=== PATIENT | male | born 1945 | race American Indian/Alaskan Native ===

== ENCOUNTER 2018-03-24 08:21 | Day surgery (SDC) | payer MEDICARE, BC, OTHER ==
[~2018-03-24 08:21] MED LIST: Lactated Ringers 1,000 ML IV SCH
[2018-03-24] MEDS ORDERED: Lidocaine 2% 5 ML SDV ONE (08:22)
[2018-03-24] MEDS ORDERED: fentaNYL 100 MCG/2 ML SDV ONE (08:23)
[2018-03-24] MEDS ORDERED: Propofol 200 MG/20 ML SDV ONE ×2 (08:23→08:24)
--- NOTE | 2018-03-24 09:49 | PCM.PREANE ---
Preanesthetic Assessment - Procedure Proposed Procedure: Colonoscopy - Anesthesia/Transfusion/Family Hx Anesthesia History: Prior Anesthesia Without Reaction Family History of Anesthesia Reaction: No Transfusion History: No Prior Transfusion(s) - Review of Systems General: No Symptoms Pulmonary: No Symptoms Cardiovascular: Other (s/p CABG 2001, off Plavix x 6 days; HTN; [place]; CHF hx) Gastrointestinal: Other (stool blood) Neurological: No Symptoms Other: Reports: Diabetes (type II) - Physical Assessment NPO Status Date: 03/23/18 NPO Status Time: 22:00 O2 Sat by Pulse Oximetry: 97 Respiratory Rate: 16 Vital Signs: Last Vital Signs Temp 97.9 F 03/24/18 08:44 Pulse 62 03/24/18 08:44 Resp 16 03/24/18 08:44 BP 180/82 H 03/24/18 08:44 Pulse Ox 97 03/24/18 08:44 Height: 5 ft 8 in Weight: 197 lb ASA Class: 4 Mental Status: Alert & Oriented x3 Airway Class: Mallampati = 2 Dentition: Reports: Normal Dentition Thyro-Mental Finger Breadths: 3 Mouth Opening Finger Breadths: 3 ROM/Head Extension: Full Lungs: Clear to Auscultation, Normal Respiratory Effort, Decreased Breath Sounds Cardiovascular: Regular Rate, Regular Rhythm, No Murmurs Other: sternal scar - Lab Values: Laboratory Last Values POC Glucose 77 mg/dL (60-110) 03/24/18 08:54 - Allergies Allergies/Adverse Reactions: Allergies Allergy/AdvReac Type Severity Reaction Status Date / Time No Known Allergies Allergy Verified 03/22/18 07:09 - Blood Blood Available: No Product(s) Available: None - Anesthesia Plan Beta Fritz: Carvedilol Med Last Dose Date: 03/24/18 Med Last Dose Time: 07:00 - Acknowledgements Anesthesia Type Planned: MAC Pt an Appropriate Candidate for the Planned Anesthesia: Yes Alternatives and Risks of Anesthesia Discussed w Pt/Guardian: Yes Pt/Guardian Understands and Agrees with Anesthesia Plan: Yes PreAnesthesia Questionnaire HEENT History: Reports: Other (See Below) Other HEENT History: wears glasses, has bottom partial Cardiovascular History: Reports: CAD, Heart Failure, High Cholesterol, Hypertension, [place] Gastrointestinal History: Reports: Chronic Constipation Genitourinary History: Reports: Renal Disease Other Genitourinary History: renal dialysis for 6 weeks 3 yrs ago Musculoskeletal History: Reports: Arthritis, Other (See Below) Other Musculoskeletal History: left knee injury 1997 Endocrine/Metabolic History: Reports: Diabetes, Type II Hematologic History: Reports: Anemia - Past Surgical History Head Surgeries/Procedures: Reports: None Cardiovascular Surgical History: Reports: Coronary Artery Bypass, Coronary Artery Stent Musculoskeletal Surgical History: Reports: Arthroscopic Knee Other Musculoskeletal Surgeries/Procedures:: left knee arthroscopy - SUBSTANCE USE Smoking Status *Q: Former Smoker Tobacco Use Within Last Twelve Months: No Recreational Drug Use History: No - HOME MEDS Home Medications: Home Meds Aspirin 1 tab PO DAILY 02/15/15 [History] Carvedilol 25 mg PO BID 02/15/15 [History] Clopidogrel [Plavix] 1 tab PO DAILY 02/15/15 [History] Nitroglycerin [Nitrostat] 1 tab SL ASDIRECTED PRN 02/15/15 [History] amLODIPine [Norvasc] 10 mg PO DAILY 02/15/15 [History] atorvaSTATin [Lipitor] 80 mg PO DAILY 02/15/15 [History] glipiZIDE [Glipizide ER] 10 mg PO BID 02/15/15 [History] hydrALAZINE [Apresoline] 50 mg PO BID 02/15/15 [History] Acetaminophen [Tylenol] 1 - 2 tab PO ASDIRECTED PRN 03/22/18 [History] Bumetanide 2 tab PO ASDIRECTED 03/22/18 [History] Cholecalciferol (Vitamin D3) [Vitamin D3] 2,000 units PO DAILY 03/22/18 [History ] Liraglutide [Victoza] 1.2 mg SUBCUT DAILY 03/22/18 [History] Potassium Chloride [K-Tab ER] 1 tab PO ASDIRECTED 03/22/18 [History] - CURRENT (IN HOUSE) MEDS Current Meds: Current Medications Lactated Ringer's (Ringers, Lactated) 1,000 mls @ 125 mls/hr IV ASDIRECTED OBDULIA Last Admin: 03/24/18 08:49 Dose: 125 mls/hr Discontinued Medications Fentanyl (Sublimaze) Confirm Administered Dose 100 mcg .ROUTE .STK-MED ONE Stop: 03/24/18 08:24 Lidocaine (Xylocaine-Mpf 2%) Confirm Administered Dose 5 ml .ROUTE .STK-MED ONE Stop: 03/24/18 08:23 Propofol (Diprivan 20 Ml) Confirm Administered Dose 400 mg .ROUTE .STK-MED ONE Stop: 03/24/18 08:24 Propofol (Diprivan 20 Ml) Confirm Administered Dose 200 mg .ROUTE .STK-MED ONE Stop: 03/24/18 08:25
--- NOTE | 2018-03-24 11:10 | PCM.OPNOTE ---
- General Post-Op/Procedure Note Date of Surgery/Procedure: 03/24/18 Operative Procedure(s): Colonoscopy with cold descending colon polypectomy Pre Op Diagnosis: Hemoccult-positive stool Post-Op Diagnosis: Descending colon polyp Anesthesia Technique: MAC (ASA III) Primary Surgeon: Jordi Davila Condition: Good Free Text/Narrative:: DICTATION [id number] CPT CODE 99621
[2018-03-24] MEDS ORDERED: Lactated Ringers 1,000 ML IV SCH (11:15)
--- NOTE | 2018-03-24 11:29 | PCM.POSTAN ---
POST ANESTHESIA ASSESSMENT - MENTAL STATUS Mental Status: Alert, Oriented - RESPIRATORY Respiratory Status: Respiratory Rate WNL, Airway Patent, O2 Saturation Stable - CARDIOVASCULAR CV Status: Pulse Rate WNL, Blood Pressure Stable - GASTROINTESTINAL GI Status: No Symptoms - POST OP HYDRATION Hydration Status: Adequate & Stable
--- NOTE | 2018-03-24 11:39 | PCM48HPAN ---
Post Anesthesia Note - EVALUATION WITHIN 48HRS OF ANESTHETIC Vital Signs in Normal Range: Yes Patient Participated in Evaluation: Yes Respiratory Function Stable: Yes Airway Patent: Yes Cardiovascular Function Stable: Yes Hydration Status Stable: Yes Pain Control Satisfactory: Yes Nausea and Vomiting Control Satisfactory: Yes Mental Status Recovered: Yes Resp Rate: 14
[2018-03-24 11:41] VITALS: BP 195/91
--- NOTE | 2018-03-24 12:34 | OR ---
SURGEON: Jordi Davila M.D. DATE OF PROCEDURE: 03/24/2018 OPERATION PERFORMED: Colonoscopy with cold descending colon polypectomy. ANESTHESIA: MAC. ASA CLASSIFICATION: III. PREOPERATIVE DIAGNOSIS: Hemoccult positive stool. POSTOPERATIVE DIAGNOSIS: Small descending colon polyp. DESCRIPTION OF PROCEDURE: The patient was taken to the endoscopy room, positioned on the endoscopy table in the left lateral decubitus position. Time-out was called for appropriate identification of the patient and procedure. Monitored anesthesia care was provided. The colonoscope was inserted into the rectum and advanced without difficulty to the cecum where the colonoscope was retroflexed to visualize the ascending colon from below. The colonoscope was then straightened and slowly withdrawn. The cecum, ascending colon, hepatic flexure, transverse colon, and splenic flexure showed no tumors, polyps, diverticula, or angiodysplastic changes. One small polyp was encountered in the descending colon and removed with cold biopsy forceps. There was no significant bleeding. The colonoscope was slowly withdrawn through the sigmoid colon. No tumors or polyps were seen and there were no diverticular changes. Once the colonoscope was withdrawn to the rectum, it was retroflexed to visualize the anal orifice from above. No tumors, polyps, or acute hemorrhoidal changes were noted. The colonoscope was then straightened, the rectum aspirated, and the colonoscope removed. The patient tolerated the procedure well and was taken to recovery room in stable. MERON GUERRERO /[id number]
== END 2018-03-24 11:41 | disposition home or self-care (01) ==
LOC: MW.SDS 08:21
PROVIDERS: ATTEND Surgery
DX: R19.5 Other fecal abnormalities (principal); D12.4 Benign neoplasm of descending colon; I11.0 Hypertensive heart disease with heart failure; I50.9 Heart failure, unspecified; I25.10 Atherosclerotic heart disease of native coronary artery without angina pectoris; I25.2 Old myocardial infarction; E78.00 Pure hypercholesterolemia, unspecified; E11.9 Type 2 diabetes mellitus without complications; M17.0 Bilateral primary osteoarthritis of knee; Z79.82 Long term (current) use of aspirin; Z79.84 Long term (current) use of oral hypoglycemic drugs; Z79.899 Other long term (current) drug therapy; Z87.891 Personal history of nicotine dependence
CPT/HCPCS: 45380; 82962; J2704; J3010; J7120

== ENCOUNTER 2018-08-16 09:56 | Emergency (ER) | payer MEDICARE, BC, OTHER ==
[2018-08-16] MEDS: Sodium Chloride 0.9% 10 ML Syringe FLUSH PRN (10:21)
[2018-08-16] MEDS: Sodium Chloride 0.9% 2.5 ML Syringe FLUSH PRN (10:21)
--- NOTE | 2018-08-16 10:24 | EDM.PDOC ---
ED HPI GENERAL MEDICAL PROBLEM - General Chief Complaint: Chest Pain Stated Complaint: CHEST PAIN Time Seen by Provider: 08/16/18 10:11 Source of Information: Reports: Patient History Limitations: Reports: No Limitations - History of Present Illness INITIAL COMMENTS - FREE TEXT/NARRATIVE: HISTORY AND PHYSICAL: History of present illness: Patient is a 73-year-old male who presents to the ED today with concerns of chest pain for the past 3 weeks. Patient states that he did have a "cold" when the chest pain and started when he was coughing. He states that he went to see Dr. Waggoner today and was told to come to the ER to get his chest pain evaluated. Patient has had prior MRIs and states that this pain does not feel like the ones that he had. Patient describes the chest pain as a dull and a 2 out of 10. He states that he is not able to make it better or worse with any positional changes or present on his chest. Patient states all upper respiratory symptoms have resolved but he now has this chest pain. Patient denies shortness of breath, difficulties breathing, diaphoresis, radiation of pain, abdominal pain, nausea, vomiting, fevers, chills, or all other GI, , cardiovascular, or respiratory complaints. Patient does have a history of 2 myocardial infarctions s/p stent and bypass; patient is unsure how long ago this was. He also has a history of congestive heart failure, type 2 diabetes on oral medications, hypertension, hyperlipidemia. Review of systems: As per history of present illness and below otherwise all systems reviewed and negative. Past medical history: As per history of present illness and as reviewed below otherwise noncontributory. Surgical history: As per history of present illness and as reviewed below otherwise noncontributory. Social history: See social history for further information Family history: As per history of present illness and as reviewed below otherwise noncontributory. Physical exam: General: Patient is alert, oriented, and in no acute distress. He is sitting comfortably on exam table. HEENT: Atraumatic, normocephalic, pupils equal and reactive bilaterally, negative for conjunctival pallor or scleral icterus, mucous membranes moist, TMs normal bilaterally, throat clear, neck supple, nontender, trachea midline. No drooling or trismus noted. No meningeal signs. No hot potato voice noted. Lungs: Diminished but clear to auscultation, breath sounds equal bilaterally, chest nontender. Heart: Distant S1S2, regular rate and rhythm without overt murmur Abdomen: Soft, nondistended, nontender. Negative for masses or hepatosplenomegaly. Negative for costovertebral tenderness. Pelvis: Stable nontender. Genitourinary: Deferred. Rectal: Deferred. Skin: Intact, warm, dry. No lesions or rashes noted. Extremities: Atraumatic, negative for cords or calf pain. Neurovascular unremarkable. Neuro: Awake, alert, oriented. Cranial nerves II through XII unremarkable. Cerebellum unremarkable. Motor and sensory unremarkable throughout. Exam nonfocal. Notes: Aspirin [employer]; on plavix. Chest x-ray shows no acute cardiopulmonary process. Patient does have an elevated creatinine and BUN but this appears to be within his normal range of function compared to prior visits is slightly even improved. EKG and cardiac workup today was unremarkable. Lab workup unremarkable. Discussed these findings with patient and offered admission. Patient states that he feels well enough to go home and does not desire to be admitted at this time. Discussed the risks versus benefits of this. Return to the ED if he changes his mind. Vital signs are stable. He denies any pain at this time. Supportive care measures were reviewed and discussed. Voices understanding and is agreeable to plan of care. Denies any further questions or concerns at this time. Diagnostics: CBC, CMP, EKG, troponin, chest x-ray, BNP, PT/INR, Therapeutics: saline lock Prescription: none Impression: Chest pain, unspecified Plan: 1. Follow up with your hosiery repairer or your primary care provider in the next 1- 2 days. 2. Continue all home medications as prescribed. 3. Return to the ED as needed and as discussed. Definitive disposition and diagnosis as appropriate pending reevaluation and review of above. - Related Data Allergies Allergy/AdvReac Type Severity Reaction Status Date / Time No Known Allergies Allergy Verified 08/16/18 10:09 Home Meds: Home Meds Aspirin 1 tab PO QAM 02/15/15 [History] Carvedilol 25 mg PO BID 02/15/15 [History] Clopidogrel [Plavix] 1 tab PO QAM 02/15/15 [History] Nitroglycerin [Nitrostat] 0.4 mg SL ASDIRECTED PRN 02/15/15 [History] amLODIPine [Norvasc] 10 mg PO BEDTIME 02/15/15 [History] atorvaSTATin [Lipitor] 80 mg PO QAM 02/15/15 [History] hydrALAZINE [Apresoline] 50 mg PO BID 02/15/15 [History] Acetaminophen [Tylenol] 1 - 2 tab PO Q6H PRN 03/22/18 [History] Bumetanide 2 mg PO ASDIRECTED 03/22/18 [History] Cholecalciferol (Vitamin D3) [Vitamin D3] 2,000 units PO DAILY 03/22/18 [History ] Liraglutide [Victoza] 1.2 mg SUBCUT QAM 03/22/18 [History] Potassium Chloride [K-Tab ER] 1 tab PO ASDIRECTED 03/22/18 [History] Diclofenac Sodium [Diclofono] 1 applic TP ASDIRECTED PRN 08/16/18 [History] glipiZIDE [Glucotrol] 10 mg PO BID 08/16/18 [History] Past Medical History HEENT History: Reports: Other (See Below) Other HEENT History: wears glasses, has bottom partial Cardiovascular History: Reports: CAD, Heart Failure, High Cholesterol, Hypertension, [place] Respiratory History: Reports: None Gastrointestinal History: Reports: Chronic Constipation Genitourinary History: Reports: Renal Disease Other Genitourinary History: renal dialysis for 6 weeks 3 yrs ago Musculoskeletal History: Reports: Arthritis, Other (See Below) Other Musculoskeletal History: left knee injury 1998 Neurological History: Reports: None Psychiatric History: Reports: None Endocrine/Metabolic History: Reports: Diabetes, Type II Hematologic History: Reports: Anemia Immunologic History: Reports: None Oncologic (Cancer) History: Reports: None Dermatologic History: Reports: None - Past Surgical History Head Surgeries/Procedures: Reports: None HEENT Surgical History: Reports: None Cardiovascular Surgical History: Reports: Coronary Artery Bypass, Coronary Artery Stent Respiratory Surgical History: Reports: None GI Surgical History: Reports: None Male Surgical History: Reports: None Endocrine Surgical History: Reports: None Neurological Surgical History: Reports: None Musculoskeletal Surgical History: Reports: Arthroscopic Knee Other Musculoskeletal Surgeries/Procedures:: left knee arthroscopy Oncologic Surgical History: Reports: None Dermatological Surgical History: Reports: None Social & Family History - Family History Family Medical History: Noncontributory - Tobacco Use Smoking Status *Q: Former Smoker Used Tobacco, but Quit: Yes Month/Year Tobacco Last Used: 40years - Caffeine Use Caffeine Use: Reports: Coffee - Recreational Drug Use Recreational Drug Use: No ED ROS GENERAL - Review of Systems Review Of Systems: ROS reveals no pertinent complaints other than HPI. ED EXAM, GENERAL - Physical Exam Exam: See Below (See dictation) Course - Vital Signs Last Recorded V/S: Last Vital Signs Temp 97.3 F 08/16/18 09:57 Pulse 63 08/16/18 11:34 Resp 15 08/16/18 11:34 BP 146/65 H 08/16/18 11:34 Pulse Ox 95 08/16/18 11:34 - Orders/Labs/Meds Orders: Active Orders 24 hr Category Date Time Status EKG Documentation Completion [RC] STAT Care 08/16/18 10:12 Active Saline Lock Insert [OM.PC] Stat Oth 08/16/18 10:12 Ordered Labs: Laboratory Tests 08/16/18 08/16/18 08/16/18 Range/Units 10:02 10:02 10:02 WBC 10.22 (4.0-11.0) K/uL RBC 4.60 (4.50-5.90) M/uL Hgb 13.5 (13.0-17.0) g/dL Hct 40.2 (38.0-50.0) % MCV 87.4 (80.0-98.0) fL MCH 29.3 (27.0-32.0) pg MCHC 33.6 (31.0-37.0) g/dL RDW Std Deviation 43.7 (28.0-62.0) fl RDW Coeff of [place] 14 (11.0-15.0) % Plt Count 276 (150-400) K/uL MPV 9.40 (7.40-12.00) fL Neut % (Auto) 73.0 (48.0-80.0) % Lymph % (Auto) 14.0 L (16.0-40.0) % [place] % (Auto) 7.3 (0.0-15.0) % Eos % (Auto) 5.4 (0.0-7.0) % Baso % (Auto) 0.3 (0.0-1.5) % Neut # (Auto) 7.5 H (1.4-5.7) K/uL Lymph # (Auto) 1.4 (0.6-2.4) K/uL [place] # (Auto) 0.8 (0.0-0.8) K/uL Eos # (Auto) 0.6 (0.0-0.7) K/uL Baso # (Auto) 0.0 (0.0-0.1) K/uL Nucleated RBC % 0.0 /100WBC Nucleated RBCs # 0 K/uL INR 1.08 Sodium 134 L (136-148) mmol/L Potassium 4.3 (3.5-5.1) mmol/L Chloride 100 (98-107) mmol/L Carbon Dioxide 25.7 (21.0-32.0) mmol/L BUN 32 H (7.0-18.0) mg/dL Creatinine 1.7 H (0.8-1.3) mg/dL Est Cr Clr Drug Dosing 38.00 mL/min Estimated GFR (MDRD) 39.8 ml/min Glucose 218 H (74-106) mg/dL Calcium 8.6 (8.5-10.1) mg/dL Total Bilirubin 0.8 (0.2-1.0) mg/dL AST 34 (15-37) IU/L ALT 44 (14-63) IU/L Alkaline Phosphatase 183 H (46-116) U/L Troponin I < 0.050 (0.000-0.056) ng/mL B-Natriuretic Peptide (<100) PG/ML Total Protein 7.8 (6.4-8.2) g/dL Albumin 3.1 L (3.4-5.0) g/dL Globulin 4.7 H (2.6-4.0) g/dL Albumin/Globulin Ratio 0.7 L (0.9-1.6) 08/16/18 Range/Units 10:02 WBC (4.0-11.0) K/uL RBC (4.50-5.90) M/uL Hgb (13.0-17.0) g/dL Hct (38.0-50.0) % MCV (80.0-98.0) fL MCH (27.0-32.0) pg MCHC (31.0-37.0) g/dL RDW Std Deviation (28.0-62.0) fl RDW Coeff of [place] (11.0-15.0) % Plt Count (150-400) K/uL MPV (7.40-12.00) fL Neut % (Auto) (48.0-80.0) % Lymph % (Auto) (16.0-40.0) % [place] % (Auto) (0.0-15.0) % Eos % (Auto) (0.0-7.0) % Baso % (Auto) (0.0-1.5) % Neut # (Auto) (1.4-5.7) K/uL Lymph # (Auto) (0.6-2.4) K/uL [place] # (Auto) (0.0-0.8) K/uL Eos # (Auto) (0.0-0.7) K/uL Baso # (Auto) (0.0-0.1) K/uL Nucleated RBC % /100WBC Nucleated RBCs # K/uL INR Sodium (136-148) mmol/L Potassium (3.5-5.1) mmol/L Chloride (98-107) mmol/L Carbon Dioxide (21.0-32.0) mmol/L BUN (7.0-18.0) mg/dL Creatinine (0.8-1.3) mg/dL Est Cr Clr Drug Dosing mL/min Estimated GFR (MDRD) ml/min Glucose (74-106) mg/dL Calcium (8.5-10.1) mg/dL Total Bilirubin (0.2-1.0) mg/dL AST (15-37) IU/L ALT (14-63) IU/L Alkaline Phosphatase (46-116) U/L Troponin I (0.000-0.056) ng/mL B-Natriuretic Peptide 162 H (<100) PG/ML Total Protein (6.4-8.2) g/dL Albumin (3.4-5.0) g/dL Globulin (2.6-4.0) g/dL Albumin/Globulin Ratio (0.9-1.6) Meds: Medications Discontinued Medications Generic Name Dose Route Start Last Admin Trade Name Freq PRN Reason Stop Dose Admin Sodium Chloride 10 ml 08/16/18 10:12 08/16/18 10:21 Saline Flush FLUSH 10 ml ASDIRECTED PRN Administration Keep Vein Open Sodium Chloride 2.5 ml 08/16/18 10:12 08/16/18 10:21 Saline Flush FLUSH 2.5 ml ASDIRECTED PRN Administration Keep Vein Open Departure - Departure Time of Disposition: 11:31 Disposition: Home, Self-Care 01 Clinical Impression: Chest pain Qualifiers: Chest pain type: unspecified Qualified Code(s): R07.9 - Chest pain, unspecified Instructions: Nonspecific Chest Pain, [id number] Referrals: Yenni Waggoner MD [Primary Care Provider] - Forms: ED Department Discharge Additional Instructions: The following information is given to patients seen in the emergency department who are being discharged to home. This information is to outline your options for follow-up care. We provide all patients seen in our emergency department with a follow-up referral. The need for follow-up, as well as the timing and circumstances, are variable depending upon the specifics of your emergency department visit. If you don't have a primary care physician on staff, we will provide you with a referral. We always advise you to contact your personal physician following an emergency department visit to inform them of the circumstance of the visit and for follow-up with them and/or the need for any referrals to a consulting specialist. The emergency department will also refer you to a specialist when appropriate. This referral assures that you have the opportunity for follow-up care with a specialist. All of these measure are taken in an effort to provide you with optimal care, which includes your follow-up. Under all circumstances we always encourage you to contact your private physician who remains a resource for coordinating your care. When calling for follow-up care, please make the office aware that this follow-up is from your recent emergency room visit. If for any reason you are refused follow-up, please contact the [facility] Emergency Department at and asked to speak to the emergency department charge nurse. [facility] [address] [place] [id number] [address] [address] 1. Follow up with your hosiery repairer or your primary care provider in the next 1- 2 days. 2. Continue all home medications as prescribed. 3. Return to the ED as needed and as discussed. - My Orders Last 24 Hours: My Active Orders 08/16/18 10:12 EKG Documentation Completion [RC] STAT Saline Lock Insert [OM.PC] Stat - Assessment/Plan Last 24 Hours: My Active Orders 08/16/18 10:12 EKG Documentation Completion [RC] STAT Saline Lock Insert [OM.PC] Stat
--- NOTE | 2018-08-16 10:45 | CR ---
EXAMINATION: Portable chest radiograph. HISTORY: Chest pain. FINDINGS: The trachea is midline. The cardiomediastinal silhouette is within normal limits. No pulmonary infiltrates, effusions or pneumothorax. Median sternotomy wires are noted. Osseous structures appear unremarkable. IMPRESSION: No acute cardiopulmonary process.
[2018-08-16 11:11] LABS: CHLORIDE,CL 100 mmol/L (98-107); SODIUM,NA 134 mmol/L (136-148)
[2018-08-16 11:34] VITALS: BP 146/65
== END 2018-08-16 11:44 | disposition home or self-care (01) ==
LOC: MW.ED 09:56
DX: R07.9 Chest pain, unspecified (principal); I11.0 Hypertensive heart disease with heart failure; I50.9 Heart failure, unspecified; I25.2 Old myocardial infarction; I25.10 Atherosclerotic heart disease of native coronary artery without angina pectoris; E11.9 Type 2 diabetes mellitus without complications; Z79.899 Other long term (current) drug therapy; Z79.82 Long term (current) use of aspirin; Z87.891 Personal history of nicotine dependence; Z79.01 Long term (current) use of anticoagulants
CPT/HCPCS: 36415; 71045; 71045-26; 80053; 83880; 84484; 85025; 85610; 93005; 99284; 99285-25

== ENCOUNTER 2019-06-02 20:04 | Emergency (ER) | payer MEDICARE, BC, OTHER ==
[2019-06-02] MEDS ORDERED: EPINEPHrine 1:10,000 1 MG/10 ML Syringe IV ONE ×2 (20:05)
[2019-06-02] MEDS ORDERED: Rocuronium 100 MG/10 ML MDV IVPUSH ONE (20:05)
[2019-06-02] MEDS ORDERED: Sodium Chloride 0.9% 2.5 ML Syringe FLUSH PRN ×2 (20:06→20:08)
[2019-06-02] MEDS ORDERED: Sodium Chloride 0.9% 10 ML Syringe FLUSH PRN ×2 (20:06→20:08)
[2019-06-02] MEDS ORDERED: methylPREDNISolone Sodium Succinate 125 MG/2 ML SDV IVPUSH ONE (20:09)
[2019-06-02] MEDS ORDERED: Albuterol/Ipratropium 3.0-0.5 MG/3 ML Neb Soln NEB ONE (20:10)
[2019-06-02] MEDS ORDERED: Midazolam 5 MG/ML SDV IVPUSH ONE (20:11)
[2019-06-02] MEDS ORDERED: Sodium Chloride 0.9% 1,000 ML IV ONE (20:13)
[2019-06-02] MEDS ORDERED: Atropine 0.1 MG/ML 10 ML Syringe IVPUSH ONE (20:14)
[2019-06-02] MEDS ORDERED: Atropine 0.1 MG/ML 10 ML Syringe IV ONE (20:14)
[2019-06-02] MEDS ORDERED: Rocuronium 100 MG/10 ML Syringe IVPUSH ONE (20:15)
[2019-06-02] MEDS ORDERED: Piperacillin/Tazobactam 3.375 GM in Sodium Chloride 0.9% 50 ML IV ONE (20:27)
[2019-06-02] MEDS ORDERED: Enoxaparin 100 MG/1 ML Syringe SUBCUT ONE (20:28)
[2019-06-02 20:35] VITALS: PULSE 25
--- NOTE | 2019-06-02 20:35 | EDM.PDOC ---
ED HPI GENERAL MEDICAL PROBLEM - General Chief Complaint: Chest Pain Stated Complaint: HARD TIME BREATHING Time Seen by Provider: 06/02/19 20:29 Source of Information: Reports: Patient - History of Present Illness INITIAL COMMENTS - FREE TEXT/NARRATIVE: HISTORY AND PHYSICAL: History of present illness: [he arrives unresponsive [place] Coma Scale ranging from 3-8 in the first few minutes, his O2 sat was 50% on room air ] Intubation was attempted and completed with 2 of Versed 100 of : followed by rocuronium 70 mg Patient did code shortly after intubation, compressions were started, with PA on the cardiac cath lab manager a rate of 23, epinephrine was provided, a. Short period with no pulse and asystole, however the epinephrine was effective normal sinus rhythm in the 90s with a strong pulse No further information at this time lab and chest x-ray pending at time of dictation I did initiate transfer to [facility][1] with Dr. Samuel Review of systems: As per history of present illness and below otherwise all systems reviewed and negative. Past medical history: As per history of present illness and as reviewed below otherwise noncontributory. Surgical history: As per history of present illness and as reviewed below otherwise noncontributory. Social history: No reported history of drug or alcohol abuse. Family history: As per history of present illness and as reviewed below otherwise noncontributory. Physical exam: HEENT: Atraumatic, normocephalic, pupils reactive, negative for conjunctival pallor or scleral icterus, mucous membranes moist, throat clear, neck supple, nontender, trachea midline. Lungs: Clear to auscultation, breath sounds equal bilaterally, chest nontender. Heart: S1S2, regular, negative for clicks, rubs, or JVD. Abdomen: Soft, nondistended, nontender. Negative for masses or hepatosplenomegaly. Negative for costovertebral tenderness. Pelvis: Stable nontender. Genitourinary: Deferred. Rectal: Deferred. Extremities: Atraumatic, negative for cords or calf pain. Neurovascular unremarkable. Neuro: Awake, alert, oriented. Cranial nerves II through XII unremarkable. Cerebellum unremarkable. Motor and sensory unremarkable throughout. Exam nonfocal. Diagnostics: [CBC CMP UA troponin ABG Chest 1 view postintubation Blood cultures 2 ] Therapeutics: Atropine 2 on first arrival zosyn Vancomycin DuoNeb Solu-Medrol Lovenox intubation ] Impression: [ hemodynamically stable Asystole resolved Hypoxia resolved ] Definitive disposition and diagnosis as appropriate pending reevaluation and review of above. - Related Data Allergies Allergy/AdvReac Type Severity Reaction Status Date / Time No Known Allergies Allergy Verified 08/16/18 10:09 Home Meds: Home Meds Aspirin 1 tab PO QAM 02/15/15 [History] Clopidogrel [Plavix] 1 tab PO QAM 02/15/15 [History] Nitroglycerin [Nitrostat] 0.4 mg SL ASDIRECTED PRN 02/15/15 [History] amLODIPine [Norvasc] 10 mg PO BEDTIME 02/15/15 [History] atorvaSTATin [Lipitor] 80 mg PO QAM 02/15/15 [History] carvediloL [Carvedilol] 25 mg PO BID 02/15/15 [History] hydrALAZINE [Apresoline] 50 mg PO BID 02/15/15 [History] Acetaminophen [Tylenol] 1 - 2 tab PO Q6H PRN 03/22/18 [History] Bumetanide 2 mg PO ASDIRECTED 03/22/18 [History] Cholecalciferol (Vitamin D3) [Vitamin D3] 2,000 units PO DAILY 03/22/18 [History ] Liraglutide [Victoza] 1.2 mg SUBCUT QAM 03/22/18 [History] Potassium Chloride [K-Tab ER] 1 tab PO ASDIRECTED 03/22/18 [History] Diclofenac Sodium [Diclofono] 1 applic TP ASDIRECTED PRN 08/16/18 [History] glipiZIDE [Glucotrol] 10 mg PO BID 08/16/18 [History] Past Medical History HEENT History: Reports: Other (See Below) Other HEENT History: wears glasses, has bottom partial Cardiovascular History: Reports: CAD, Heart Failure, High Cholesterol, Hypertension, [place] Respiratory History: Reports: None Gastrointestinal History: Reports: Chronic Constipation Genitourinary History: Reports: Renal Disease Other Genitourinary History: renal dialysis for 6 weeks 3 yrs ago Musculoskeletal History: Reports: Arthritis, Other (See Below) Other Musculoskeletal History: left knee injury 1998 Neurological History: Reports: None Psychiatric History: Reports: None Endocrine/Metabolic History: Reports: Diabetes, Type II Hematologic History: Reports: Anemia Immunologic History: Reports: None Oncologic (Cancer) History: Reports: None Dermatologic History: Reports: None - Past Surgical History Head Surgeries/Procedures: Reports: None HEENT Surgical History: Reports: None Cardiovascular Surgical History: Reports: Coronary Artery Bypass, Coronary Artery Stent Respiratory Surgical History: Reports: None GI Surgical History: Reports: None Male Surgical History: Reports: None Endocrine Surgical History: Reports: None Neurological Surgical History: Reports: None Musculoskeletal Surgical History: Reports: Arthroscopic Knee Other Musculoskeletal Surgeries/Procedures:: left knee arthroscopy Oncologic Surgical History: Reports: None Dermatological Surgical History: Reports: None Social & Family History - Family History Family Medical History: Noncontributory - Caffeine Use Caffeine Use: Reports: Coffee ED ROS GENERAL - Review of Systems Review Of Systems: See Below ED EXAM, GENERAL - Physical Exam Exam: See Below Course - Vital Signs Last Recorded V/S: Last Vital Signs Temp Pulse 25 L 06/02/19 20:33 Resp BP Pulse Ox 50 L 06/02/19 20:33 - Orders/Labs/Meds Orders: Active Orders 24 hr Category Date Time Status Cardiac Monitoring [RC] . DIRECTED Care 06/02/19 20:06 Active EKG Documentation Completion [RC] STAT Care 06/02/19 20:06 Active RT Aerosol Therapy [RC] ASDIRECTED Care 06/02/19 20:11 Active Chest 1V Frontal [CR] Stat Exams 06/02/19 20:08 Taken ABG [BLOOD GAS ARTERIAL] [BG] Stat Lab 06/02/19 20:35 Ordered COMPREHENSIVE METABOLIC PN,CMP [CHEM] Stat Lab 06/02/19 20:15 Received CULTURE BLOOD [BC] Stat Lab 06/02/19 20:07 Ordered CULTURE BLOOD [BC] Stat Lab 06/02/19 20:15 Received TROPONIN I [CHEM] Stat Lab 06/02/19 20:15 Received Piperacillin/Tazobactam [Piperacil-Tazobact] 3.375 gm Med 06/02/19 20:27 Active Sodium Chloride 0.9% [Normal Saline] 50 ml IV ONETIME Sodium Chloride 0.9% [Normal Saline] 1,000 ml Med 06/02/19 20:13 Active IV STAT Sodium Chloride 0.9% [Saline Flush] Med 06/02/19 20:06 Active 10 ml FLUSH ASDIRECTED PRN Sodium Chloride 0.9% [Saline Flush] Med 06/02/19 20:08 Active 10 ml FLUSH ASDIRECTED PRN Sodium Chloride 0.9% [Saline Flush] Med 06/02/19 20:06 Active 2.5 ml FLUSH ASDIRECTED PRN Sodium Chloride 0.9% [Saline Flush] Med 06/02/19 20:08 Active 2.5 ml FLUSH ASDIRECTED PRN Vancomycin 1 gm Med 06/02/19 20:27 Active Sodium Chloride 0.9% [Normal Saline (AdvBag)] 250 ml IV ONETIME Blood Culture x2 Reflex Set [OM.PC] Stat Oth 06/02/19 20:06 Ordered Saline Lock Insert [OM.PC] Stat Oth 06/02/19 20:06 Ordered Saline Lock Insert [OM.PC] Stat Oth 06/02/19 20:08 Ordered Medication Orders Sodium Chloride (Normal Saline) 1,000 mls @ 999 mls/hr IV STAT ONE Stop: 06/02/19 21:13 Piperacillin Sod/Tazobactam (Sod 3.375 gm/ Sodium Chloride) 50 mls @ 100 mls/ hr IV ONETIME ONE Stop: 06/02/19 20:56 Vancomycin HCl 1 gm/ Sodium (Chloride) 250 mls @ 166 mls/hr IV ONETIME ONE Stop: 06/02/19 21:57 Sodium Chloride (Saline Flush) 10 ml FLUSH ASDIRECTED PRN PRN Reason: Keep Vein Open Sodium Chloride (Saline Flush) 2.5 ml FLUSH ASDIRECTED PRN PRN Reason: Keep Vein Open Sodium Chloride (Saline Flush) 10 ml FLUSH ASDIRECTED PRN PRN Reason: Keep Vein Open Sodium Chloride (Saline Flush) 2.5 ml FLUSH ASDIRECTED PRN PRN Reason: Keep Vein Open Labs: Laboratory Tests 06/02/19 06/02/19 06/02/19 Range/Units 20:15 20:15 20:15 WBC 10.31 (4.0-11.0) K/uL RBC 4.13 L (4.50-5.90) M/uL Hgb 12.1 L (13.0-17.0) g/dL Hct 39.2 (38.0-50.0) % MCV 94.9 (80.0-98.0) fL MCH 29.3 (27.0-32.0) pg MCHC 30.9 L (31.0-37.0) g/dL RDW Std Deviation 52.4 (28.0-62.0) fl RDW Coeff of [place] 15 (11.0-15.0) % Plt Count 319 (150-400) K/uL MPV 9.40 (7.40-12.00) fL Neut % (Auto) 62.7 (48.0-80.0) % Lymph % (Auto) 25.3 (16.0-40.0) % [place] % (Auto) 7.1 (0.0-15.0) % Eos % (Auto) 4.4 (0.0-7.0) % Baso % (Auto) 0.5 (0.0-1.5) % Neut # (Auto) 6.5 H (1.4-5.7) K/uL Lymph # (Auto) 2.6 H (0.6-2.4) K/uL [place] # (Auto) 0.7 (0.0-0.8) K/uL Eos # (Auto) 0.5 (0.0-0.7) K/uL Baso # (Auto) 0.1 (0.0-0.1) K/uL Nucleated RBC % 0.0 /100WBC Nucleated RBCs # 0 K/uL INR 1.09 Lactate 8.9 H* (0.20-2.00) mmol/L Meds: Medications Generic Name Dose Route Start Last Admin Trade Name Freq PRN Reason Stop Dose Admin Sodium Chloride 1,000 mls @ 999 mls/hr 06/02/19 20:13 Normal Saline IV 06/02/19 21:13 STAT ONE Piperacillin Sod/Tazobactam 50 mls @ 100 mls/hr 06/02/19 20:27 Sod 3.375 gm/ Sodium Chloride IV 06/02/19 20:56 ONETIME ONE Vancomycin HCl 1 gm/ Sodium 250 mls @ 166 mls/hr 06/02/19 20:27 Chloride IV 06/02/19 21:57 ONETIME ONE Sodium Chloride 10 ml 06/02/19 20:06 Saline Flush FLUSH ASDIRECTED PRN Keep Vein Open Sodium Chloride 2.5 ml 06/02/19 20:06 Saline Flush FLUSH ASDIRECTED PRN Keep Vein Open Sodium Chloride 10 ml 06/02/19 20:08 Saline Flush FLUSH ASDIRECTED PRN Keep Vein Open Sodium Chloride 2.5 ml 06/02/19 20:08 Saline Flush FLUSH ASDIRECTED PRN Keep Vein Open Discontinued Medications Generic Name Dose Route Start Last Admin Trade Name Saturninoq PRN Reason Stop Dose Admin Albuterol/Ipratropium 3 ml 06/02/19 20:10 Duoneb 3.0-0.5 Mg/3 Ml NEB 06/02/19 20:11 ONETIME ONE Atropine Sulfate 0.5 mg 06/02/19 20:14 Atropine 0.1 Mg/Ml IV 06/02/19 20:15 ONETIME ONE Enoxaparin Sodium 100 mg 06/02/19 20:28 Lovenox SUBCUT 06/02/19 20:29 ONETIME ONE Propofol Confirm 06/02/19 20:30 Diprivan 50 Ml Administered 06/02/19 20:31 Dose 50 mls @ as directed .ROUTE .STK-MED ONE Methylprednisolone Sodium Succinate 125 mg 06/02/19 20:09 Solu-Medrol IVPUSH 06/02/19 20:10 ONETIME ONE Midazolam HCl 2 mg 06/02/19 20:11 Versed 5 Mg/Ml IVPUSH 06/02/19 20:12 ONETIME ONE Succinylcholine Chloride 100 mg 06/02/19 20:11 Succinylcholine Chloride IV 06/02/19 20:12 ONETIME ONE Departure - Departure Time of Disposition: 20:38 Disposition: DC/Tfer to Acute Hospital 02 Condition: Critical Clinical Impression: Hypoxia, Asystole - Discharge Information Referrals: Yenni Waggoner MD [Primary Care Provider] - Forms: ED Department Discharge - My Orders Last 24 Hours: My Active Orders 06/02/19 20:27 Piperacillin/Tazobactam [Piperacil-Tazobact] 3.375 gm Sodium Chloride 0.9% [ Normal Saline] 50 ml IV ONETIME Vancomycin 1 gm Sodium Chloride 0.9% [Normal Saline (AdvBag)] 250 ml IV ONETIME 06/02/19 20:35 ABG [BLOOD GAS ARTERIAL] [BG] Stat - Assessment/Plan Last 24 Hours: My Active Orders 06/02/19 20:27 Piperacillin/Tazobactam [Piperacil-Tazobact] 3.375 gm Sodium Chloride 0.9% [ Normal Saline] 50 ml IV ONETIME Vancomycin 1 gm Sodium Chloride 0.9% [Normal Saline (AdvBag)] 250 ml IV ONETIME 06/02/19 20:35 ABG [BLOOD GAS ARTERIAL] [BG] Stat
[2019-06-02 20:50] LABS: BLOOD UREA NITROGEN,BUN 46 mg/dL (7.0-18.0); CARBON DIOXIDE,CO2 24.5 mmol/L (21.0-32.0); CHLORIDE,CL 105 mmol/L (98-107); GLUCOSE RANDOM 280 mg/dL (74-106); POTASSIUM,K 4.6 mmol/L (3.5-5.1); SODIUM,NA 144 mmol/L (136-148)
--- NOTE | 2019-06-02 20:54 | PCM.SN ---
- Free Text/Narrative Note: Called to ER for Cardiac Arrest. MD attempting to intubate. Given Glidescope and ET. ET with ease under DV. 25 at teeth. BS=BS. EtCO2 present. Tube confirmed with CXR. Continued bag ventilation. Rocuronium 50mg IV. Propofol 150mg over ~ 8 minutes. Flight crew here to transfer. Total Time:20:15-20:40.
[2019-06-02] MEDS ORDERED: Sodium Chloride 0.9% 1,000 ML IV SCH (21:15)
[2019-06-02] MEDS ORDERED: Propofol 200 MG/20 ML SDV IVPUSH ONE (21:15)
[2019-06-02] MEDS ORDERED: Furosemide 40 MG/4 ML VIAL IVPUSH ONE (21:34)
[2019-06-02] MEDS ORDERED: EPINEPHrine 1 MG/1 ML Amp IVPUSH ONE (21:41)
--- NOTE | 2019-06-04 15:17 | CR ---
EXAM DATE: 06/02/19 PATIENT'S AGE: 73 Patient: ANDI DALY Facility: [facility] Site . Site : [id number] Study: [id number]/7/2019 8:42:34 PM Ordering Physician: Сергей Bedolla Final Report: INDICATION: Chest pain, post intubation TECHNIQUE: Chest radiograph 1 view COMPARISON: 08/16/2018 FINDINGS: Mediastinum: Previous median sternotomy and coronary artery bypass grafting ( CABG) noted. The heart silhouette is normal in size and morphology. The endotracheal tube tip is positioned point cm from the jessica. Lung: Ground-glass and patchy airspace infiltrates are present in the perihilar regions and lung bases bilaterally. No pneumothorax is identified. Bone and Soft tissue: Unremarkable for age. IMPRESSION: 1. Ground-glass and patchy airspace infiltrates are present in the perihilar regions and lung bases bilaterally. Findings may be due to pulmonary edema or pneumonia. Dictated by Slade Oconnell MD @ 06/02/2019 8:52:08 PM Dictated by: Slade Oconnell MD @ 06/02/2019 20:52:14 Signed by: Slade Oconnell MD @06/02/2019 8:52:14 PM (Electronic Signature) Report Signed by Proxy. ROC[facility]FELL[facility] W[facility] DEMONSTRATION HOSPITALDoris
== END 2019-06-02 21:00 ==
LOC: MW.ED 20:04
DX: I46.9 Cardiac arrest, cause unspecified (principal); R09.02 Hypoxemia; I11.0 Hypertensive heart disease with heart failure; I50.9 Heart failure, unspecified; I25.10 Atherosclerotic heart disease of native coronary artery without angina pectoris; I25.2 Old myocardial infarction; E78.00 Pure hypercholesterolemia, unspecified; M19.90 Unspecified osteoarthritis, unspecified site; E11.9 Type 2 diabetes mellitus without complications; Z95.5 Presence of coronary angioplasty implant and graft; Z79.02 Long term (current) use of antithrombotics/antiplatelets; Z79.82 Long term (current) use of aspirin; Z79.84 Long term (current) use of oral hypoglycemic drugs; Z79.899 Other long term (current) drug therapy
CPT/HCPCS: 31500; 36415; 36600; 43752; 51702; 71045; 80053; 82803; 83605; 84484; 85025; 85610; 87040; 93005; 96365; 96372; 96375; 99285; J0171; J0330; J0461; J1650; J1940; J2250; J2543; J2704; J2930; J3370; J7030; J7050; 87077; 87186; J7620-GY

== ENCOUNTER 2020-03-24 10:35 | Emergency (ER) | payer MEDICARE, BC, OTHER ==
--- NOTE | 2020-03-24 10:50 | EDM.PDOC ---
ED HPI GENERAL MEDICAL PROBLEM - General Chief Complaint: Chest Pain Stated Complaint: SOB CHEST PAIN Time Seen by Provider: 03/24/20 10:39 Source of Information: Reports: Patient History Limitations: Reports: No Limitations - History of Present Illness INITIAL COMMENTS - FREE TEXT/NARRATIVE: 74-year-old male with history of diabetes, CKD, CAD with CABG x2, CHF, HTN, HLD, NSTEMI, asystole was brought in by ambulance for dyspnea, shortness of breath and chest tightness that started acutely this morning. He was cathed at [facility] yesterday and was found to have CAD with 95% blockage which improved to 75% blockage after balloon angioplasty, the pocket builder there recommended him to follow-up with his own pocket builder at [facility] Dr. Clemente, for further cardiac work-up. They have an appointment scheduled for this with Dr. Clemente. This morning he woke up feeling fine, then had acute onset dyspnea and shortness of breath, his came home and found him clammy and sweaty. EMS noted 80% on room air, improved to 95% on 15 L nonrebreather. EMS states that his blood pressure was high. Patient admits to her intermittent diffuse chest tightness sensation, feels like someone is sitting on his chest. EMS administered 324 mg aspirin. ROS: A 10-point review of systems, other than pertinent positives and negatives as stated per HPI, is otherwise negative Past medical history: No additional pertinent history Past Surgical history: No additional pertinent history Social history: No additional pertinent history Family history: No additional pertinent history PHYSICAL EXAM General: AOx4, GCS = 15, moderate distress HEENT: dry mucous membrane Neck: supple, no meningismus, no Kernig or Brudzinski Cardiac: S1S2 RRR, JVD, no pedal edema Respiratory: diffuse rales, tachypneic. moderate respiratory distress. Abdomen: Soft, nontender, no rebound or guarding, nondistended, no pulsatile mass. Back: nontender Musculoskeletal: NVI distally, no deformity Neuro: No focal deficits Treatments MAT SEWER: Reports: Aspirin, EKG, IV/IO - Related Data Allergies Allergy/AdvReac Type Severity Reaction Status Date / Time No Known Allergies Allergy Verified 03/24/20 10:44 Home Meds: Home Meds Aspirin 1 tab PO QAM 02/15/15 [History] Clopidogrel [Plavix] 1 tab PO QAM 02/15/15 [History] Nitroglycerin [Nitrostat] 0.4 mg SL ASDIRECTED PRN 02/15/15 [History] amLODIPine [Norvasc] 10 mg PO BEDTIME 02/15/15 [History] atorvaSTATin [Lipitor] 80 mg PO QAM 02/15/15 [History] carvediloL [Carvedilol] 25 mg PO BID 02/15/15 [History] hydrALAZINE [Apresoline] 50 mg PO BID 02/15/15 [History] Acetaminophen [Tylenol] 1 - 2 tab PO Q6H PRN 03/22/18 [History] Bumetanide 2 mg PO ASDIRECTED 03/22/18 [History] Cholecalciferol (Vitamin D3) [Vitamin D3] 2,000 units PO DAILY 03/22/18 [History] Liraglutide [Victoza] 1.2 mg SUBCUT QAM 03/22/18 [History] Potassium Chloride [K-Tab ER] 1 tab PO ASDIRECTED 03/22/18 [History] Diclofenac Sodium [Diclofono] 1 applic TP ASDIRECTED PRN 08/16/18 [History] glipiZIDE [Glucotrol] 10 mg PO BID 08/16/18 [History] Past Medical History HEENT History: Reports: Other (See Below) Other HEENT History: wears glasses, has bottom partial Cardiovascular History: Reports: CAD, Heart Failure, High Cholesterol, Hypertension, [place] Respiratory History: Reports: None Gastrointestinal History: Reports: Chronic Constipation Genitourinary History: Reports: Renal Disease Other Genitourinary History: renal dialysis for 6 weeks 3 yrs ago Musculoskeletal History: Reports: Arthritis, Other (See Below) Other Musculoskeletal History: left knee injury 1998 Neurological History: Reports: None Psychiatric History: Reports: None Endocrine/Metabolic History: Reports: Diabetes, Type II Hematologic History: Reports: Anemia Immunologic History: Reports: None Oncologic (Cancer) History: Reports: None Dermatologic History: Reports: None - Infectious Disease History Infectious Disease History: Reports: Chicken Pox - Past Surgical History Head Surgeries/Procedures: Reports: None HEENT Surgical History: Reports: None Cardiovascular Surgical History: Reports: Coronary Artery Bypass, Coronary Artery Stent Respiratory Surgical History: Reports: None GI Surgical History: Reports: None Male Surgical History: Reports: None Endocrine Surgical History: Reports: None Neurological Surgical History: Reports: None Musculoskeletal Surgical History: Reports: Arthroscopic Knee Other Musculoskeletal Surgeries/Procedures:: left knee arthroscopy Oncologic Surgical History: Reports: None Dermatological Surgical History: Reports: None Social & Family History - Family History Family Medical History: Noncontributory - Caffeine Use Caffeine Use: Reports: Coffee ED ROS GENERAL - Review of Systems Review Of Systems: See Below (see dictation) ED EXAM, GENERAL - Physical Exam Exam: See Below (see dictation) EKG INTERPRETATION EKG Interpretation Comments: 89 bpm, NSR, normal QRS interval, ST depression I,AVL. EKG and rhythm strip interpreted by me at 1037 Course - Vital Signs Last Recorded V/S: Last Vital Signs Temp 95.3 F L 03/24/20 10:39 Pulse 71 03/24/20 12:40 Resp 20 03/24/20 12:40 BP 141/63 H 03/24/20 12:40 Pulse Ox 99 03/24/20 12:40 - Orders/Labs/Meds Orders: Active Orders 24 hr Category Date Time Status BIPAP [RT BiPAP/CPAP] [RC] ASDIRECTED Care 03/24/20 10:57 Active Cardiac Monitoring [RC] . DIRECTED Care 03/24/20 10:54 Active EKG Documentation Completion [RC] STAT Care 03/24/20 10:55 Active Pulse Oximetry [RC] ASDIRECTED Care 03/24/20 10:54 Active CORONAVIRUS COVID-19 PCR PHL Stat Lab 03/24/20 11:28 Received Heparin Sod,Pork In 0.45% Nacl [Heparin-1/2Ns 25,000 Med 03/24/20 11:00 Active Units/500] 25,000 unit in 500 ml IV TITRATE Nitroglycerin/D5W [Nitroglycerin 25 MG/D5W 250 ML] Med 03/24/20 13:30 Active 25 mg in 250 ml IV TITRATE Sodium Chloride 0.9% [Saline Flush] Med 03/24/20 10:54 Active 10 ml FLUSH ASDIRECTED PRN Sodium Chloride 0.9% [Saline Flush] Med 03/24/20 10:54 Active 2.5 ml FLUSH ASDIRECTED PRN Saline Lock Insert [OM.PC] Stat Oth 03/24/20 10:54 Ordered Medication Orders Heparin Sodium/Sodium Chloride (Heparin-1/2ns 25,000 Units/500) 25,000 unit in 500 mls @ 19.051 mls/hr IV TITRATE OBDULIA; Protocol Last Admin: 03/24/20 11:34 Dose: 12 units/kg/hr, 19.051 mls/hr Documented by: TRISH Cosigned by: JORDON Nitroglycerin/Dextrose (Nitroglycerin 25 Mg/D5w 250 Ml) 25 mg in 250 mls @ 6 mls/hr IV TITRATE OBDULIA; Protocol Sodium Chloride (Saline Flush) 10 ml FLUSH ASDIRECTED PRN PRN Reason: Keep Vein Open Last Admin: 03/24/20 11:22 Dose: 10 ml Documented by: TRISH Sodium Chloride (Saline Flush) 2.5 ml FLUSH ASDIRECTED PRN PRN Reason: Keep Vein Open Last Admin: 03/24/20 11:22 Dose: 2.5 ml Documented by: TRISH Labs: Laboratory Tests 03/24/20 03/24/20 03/24/20 Range/Units 10:39 10:39 10:39 WBC 12.50 H (4.0-11.0) K/uL RBC 4.17 L (4.50-5.90) M/uL Hgb 12.3 L (13.0-17.0) g/dL Hct 37.6 L (38.0-50.0) % MCV 90.2 (80.0-98.0) fL MCH 29.5 (27.0-32.0) pg MCHC 32.7 (31.0-37.0) g/dL RDW Std Deviation 47.2 (28.0-62.0) fl RDW Coeff of Marianna 14 (11.0-15.0) % Plt Count 270 (150-400) K/uL MPV 9.90 (7.40-12.00) fL Neut % (Auto) 72.1 (48.0-80.0) % Lymph % (Auto) 12.6 L (16.0-40.0) % [place] % (Auto) 10.9 (0.0-15.0) % Eos % (Auto) 4.2 (0.0-7.0) % Baso % (Auto) 0.2 (0.0-1.5) % Neut # (Auto) 9.0 H (1.4-5.7) K/uL Lymph # (Auto) 1.6 (0.6-2.4) K/uL [place] # (Auto) 1.4 H (0.0-0.8) K/uL Eos # (Auto) 0.5 (0.0-0.7) K/uL Baso # (Auto) 0.0 (0.0-0.1) K/uL Nucleated RBC % 0.0 /100WBC Nucleated RBCs # 0 K/uL APTT 29.6 (18.6-31.3) SEC ABG pH (7.35-7.45) ABG pCO2 (35-45) mmHG ABG pO2 (75-100) mmHG ABG HCO3 (22-26) mEq/L ABG Total CO2 ABG Base Excess (-2.0-2.0) Sodium 135 L (136-148) mmol/L Potassium 4.4 (3.5-5.1) mmol/L Chloride 100 (98-107) mmol/L Carbon Dioxide 22.3 (21.0-32.0) mmol/L BUN 54 H (7.0-18.0) mg/dL Creatinine 3.9 H (0.8-1.3) mg/dL Est Cr Clr Drug Dosing TNP Estimated GFR (MDRD) 15.2 ml/min Glucose 156 H (74-106) mg/dL Calcium 8.0 L (8.5-10.1) mg/dL Phosphorus 6.2 H (2.6-4.7) mg/dL Magnesium 2.5 H (1.8-2.4) mg/dL Total Bilirubin 0.8 (0.2-1.0) mg/dL AST 57 H (15-37) IU/L ALT 63 (14-63) IU/L Alkaline Phosphatase 204 H (46-116) U/L Troponin I 6.734 H* (0.000-0.056) ng/mL B-Natriuretic Peptide (<100) PG/ML Total Protein 7.7 (6.4-8.2) g/dL Albumin 3.2 L (3.4-5.0) g/dL Globulin 4.5 H (2.6-4.0) g/dL Albumin/Globulin Ratio 0.7 L (0.9-1.6) SARS CoV-2 RNA Rapid LAMINE (NEGATIVE) 03/24/20 03/24/20 03/24/20 Range/Units 10:39 11:03 11:28 WBC (4.0-11.0) K/uL RBC (4.50-5.90) M/uL Hgb (13.0-17.0) g/dL Hct (38.0-50.0) % MCV (80.0-98.0) fL MCH (27.0-32.0) pg MCHC (31.0-37.0) g/dL RDW Std Deviation (28.0-62.0) fl RDW Coeff of Marianna (11.0-15.0) % Plt Count (150-400) K/uL MPV (7.40-12.00) fL Neut % (Auto) (48.0-80.0) % Lymph % (Auto) (16.0-40.0) % [place] % (Auto) (0.0-15.0) % Eos % (Auto) (0.0-7.0) % Baso % (Auto) (0.0-1.5) % Neut # (Auto) (1.4-5.7) K/uL Lymph # (Auto) (0.6-2.4) K/uL [place] # (Auto) (0.0-0.8) K/uL Eos # (Auto) (0.0-0.7) K/uL Baso # (Auto) (0.0-0.1) K/uL Nucleated RBC % /100WBC Nucleated RBCs # K/uL APTT (18.6-31.3) SEC ABG pH 7.237 L (7.35-7.45) ABG pCO2 54 H (35-45) mmHG ABG pO2 63 L (75-100) mmHG ABG HCO3 23 (22-26) mEq/L ABG Total CO2 21.8 ABG Base Excess -4.8 L (-2.0-2.0) Sodium (136-148) mmol/L Potassium (3.5-5.1) mmol/L Chloride (98-107) mmol/L Carbon Dioxide (21.0-32.0) mmol/L BUN (7.0-18.0) mg/dL Creatinine (0.8-1.3) mg/dL Est Cr Clr Drug Dosing Estimated GFR (MDRD) ml/min Glucose (74-106) mg/dL Calcium (8.5-10.1) mg/dL Phosphorus (2.6-4.7) mg/dL Magnesium (1.8-2.4) mg/dL Total Bilirubin (0.2-1.0) mg/dL AST (15-37) IU/L ALT (14-63) IU/L Alkaline Phosphatase (46-116) U/L Troponin I (0.000-0.056) ng/mL B-Natriuretic Peptide 985 H (<100) PG/ML Total Protein (6.4-8.2) g/dL Albumin (3.4-5.0) g/dL Globulin (2.6-4.0) g/dL Albumin/Globulin Ratio (0.9-1.6) SARS CoV-2 RNA Rapid LAMINE NEGATIVE (NEGATIVE) Meds: Medications Generic Name Dose Route Start Last Admin Trade Name Freq PRN Reason Stop Dose Admin Heparin Sodium/Sodium Chloride 25,000 unit in 500 mls @ 19.051 mls/hr 03/24/20 11:00 03/24/20 11:34 Heparin-1/2ns 25,000 Units/500 IV 12 units/kg/hr TITRATE OBDULIA 19.051 mls/hr Administration Protocol 12 UNITS/KG/HR Nitroglycerin/Dextrose 25 mg in 250 mls @ 6 mls/hr 03/24/20 13:30 Nitroglycerin 25 Mg/D5w 250 Ml IV TITRATE OBDULIA Protocol 10 MCG/MIN Sodium Chloride 10 ml 03/24/20 10:54 03/24/20 11:22 Saline Flush FLUSH 10 ml ASDIRECTED PRN Administration Keep Vein Open Sodium Chloride 2.5 ml 03/24/20 10:54 03/24/20 11:22 Saline Flush FLUSH 2.5 ml ASDIRECTED PRN Administration Keep Vein Open Discontinued Medications Generic Name Dose Route Start Last Admin Trade Name Saturninoq PRN Reason Stop Dose Admin Furosemide 20 mg 03/24/20 10:54 03/24/20 11:20 Lasix IVPUSH 03/24/20 10:55 Not Given ONETIME ONE Furosemide Confirm 03/24/20 11:07 03/24/20 11:20 Lasix Administered 03/24/20 11:08 Not Given Dose 40 mg .ROUTE .STK-MED ONE Furosemide 20 mg 03/24/20 11:19 03/24/20 11:20 Lasix IVPUSH 03/24/20 11:20 20 mg NOW ONE Administration Heparin Sodium (Porcine) 4,000 units 03/24/20 10:54 03/24/20 11:22 Heparin Sodium IVPUSH 03/24/20 10:55 4,000 units .BOLUS ONE Administration Lorazepam 0.5 mg 03/24/20 11:08 03/24/20 11:43 Ativan IVPUSH 03/24/20 11:09 Not Given ONETIME ONE Morphine Sulfate 4 mg 03/24/20 10:54 03/24/20 11:16 Morphine IVPUSH 03/24/20 10:55 4 mg ONETIME ONE Administration Nitroglycerin 0.4 mg 03/24/20 10:54 03/24/20 11:41 Nitrostat SL 0.4 mg Q5M PRN Administration Chest Pain - Re-Assessments/Exams Free Text/Narrative Re-Assessment/Exam: 03/24/20 11:04 Ordered IV morphine, nitroglycerin and BiPAP for preload reduction, Lasix 20 mg IV. Heparin bolus and drip. Patient will require transfer to outside facility for the need of higher level of care not available at this facility, and the need for direct response consultant services unavailable at this facility. Any emergency conditions have been stabilized to the ability of the ED prior to the transfer. Patient is wishing to go to [facility] in [place], since his pocket builder is there. 03/24/20 13:05 I reassessed the patient, who is feeling better on NRB. 03/24/20 13:13 d/w [facility] [place], they are at [facility] for transfers[facility] Will try Serafin Galindo. 03/24/20 14:35 I reassessed the patient, who is feeling better, he does not feel like anyone sitting on his chest. Their vitals are stable at this time. Discussed with Serafin Galindo, discussed with Dr. Ruby (pocket builder), will consult on the patient. 03/24/20 14:48 Discussed with the hospitalist Jaylin Pichardo, will accept transfer. Departure - Departure Time of Disposition: 14:45 Disposition: DC/Tfer to Other 70 Condition: Critical Clinical Impression: Congestive heart failure (CHF), Dyspnea, NSTEMI (non-ST elevated myocardial infarction), ARF (acute renal failure) - Discharge Information *PRESCRIPTION DRUG MONITORING PROGRAM REVIEWED*: Not Applicable *COPY OF PRESCRIPTION DRUG MONITORING REPORT IN PATIENT JUAN CARLOS: Not Applicable Referrals: Yenni Waggoner MD [Primary Care Provider] - Forms: ED Department Discharge Critical Care Note - Critical Care Note Total Time (mins): 128 Comments: CRITCAL CARE: The high probability of sudden, clinically significant deterioration in the patient's condition required the highest level of my preparedness to intervene urgently. The services I provided to this patient were to treat and/or prevent clinically significant deterioration. Services included the following: chart data review, reviewing nursing notes and/or old charts, documentation time, direct response consultant collaboration regarding findings and treatment options, medication orders and management, direct patient care, vital sign assessments and ordering, inter preting and reviewing diagnostic studies/lab tests. Aggregate critical care time includes only time during which I was engaged in work directly related to the patient's care, as described above, whether at the bedside or elsewhere in the Emergency Department. It did not include time spent performing other reported procedures or the services of residents, students, nurses or physician assistants. Frequent interventions and/or frequent repeat evaluations were required as well as counseling and coordination of care regarding prognosis, treatments, and discussions with patient, staff and consult ants. Critical Care (excluding other procedures): 128 minutes Sepsis Event Note (ED) - Evaluation Sepsis Screening Result: No Definite Risk - Focused Exam Vital Signs: Vital Signs Temp Pulse Resp BP BP Pulse Ox 03/24/20 12:40 71 20 141/63 H 99 03/24/20 11:41 148/67 H 03/24/20 11:24 138/67 03/24/20 11:15 91 161/131 H 161/131 H 03/24/20 10:39 95.3 F L 89 30 H 193/102 H 96 - My Orders Last 24 Hours: My Active Orders 03/24/20 10:54 Cardiac Monitoring [RC] . DIRECTED Pulse Oximetry [RC] ASDIRECTED Sodium Chloride 0.9% [Saline Flush] 10 ml FLUSH ASDIRECTED PRN Sodium Chloride 0.9% [Saline Flush] 2.5 ml FLUSH ASDIRECTED PRN Saline Lock Insert [OM.PC] Stat 03/24/20 10:55 EKG Documentation Completion [RC] STAT 03/24/20 10:57 BIPAP [RT BiPAP/CPAP] [RC] ASDIRECTED 03/24/20 11:00 Heparin Sod,Pork In 0.45% Nacl [Heparin-1/2Ns 25,000 Units/500] 25,000 unit in 500 ml IV TITRATE 03/24/20 11:28 CORONAVIRUS COVID-19 PCR PHL Stat 03/24/20 13:30 Nitroglycerin/D5W [Nitroglycerin 25 MG/D5W 250 ML] 25 mg in 250 ml IV TITRATE - Assessment/Plan Last 24 Hours: My Active Orders 03/24/20 10:54 Cardiac Monitoring [RC] . DIRECTED Pulse Oximetry [RC] ASDIRECTED Sodium Chloride 0.9% [Saline Flush] 10 ml FLUSH ASDIRECTED PRN Sodium Chloride 0.9% [Saline Flush] 2.5 ml FLUSH ASDIRECTED PRN Saline Lock Insert [OM.PC] Stat 03/24/20 10:55 EKG Documentation Completion [RC] STAT 03/24/20 10:57 BIPAP [RT BiPAP/CPAP] [RC] ASDIRECTED 03/24/20 11:00 Heparin Sod,Pork In 0.45% Nacl [Heparin-1/2Ns 25,000 Units/500] 25,000 unit in 500 ml IV TITRATE 03/24/20 11:28 CORONAVIRUS COVID-19 PCR PHL Stat 03/24/20 13:30 Nitroglycerin/D5W [Nitroglycerin 25 MG/D5W 250 ML] 25 mg in 250 ml IV TITRATE
[2020-03-24] MEDS ORDERED: Morphine 4 MG/ML Syringe IVPUSH ONE (10:54)
[2020-03-24] MEDS ORDERED: Sodium Chloride 0.9% 10 ML Syringe FLUSH PRN (10:54)
[2020-03-24] MEDS ORDERED: Furosemide 20 MG/2 ML VIAL IVPUSH ONE (10:54)
[2020-03-24] MEDS ORDERED: Heparin Sodium 5,000 Units/ML Vial IVPUSH ONE (10:54)
[2020-03-24] MEDS ORDERED: Sodium Chloride 0.9% 2.5 ML Syringe FLUSH PRN (10:54)
[2020-03-24] MEDS ORDERED: Heparin Sod,Pork In 0.45% Nacl 25,000 UNIT/500 ML IV.SOLN IV SCH (11:00)
[2020-03-24] MEDS ORDERED: Furosemide 40 MG/4 ML VIAL ONE (11:07)
[2020-03-24] MEDS ORDERED: LORazepam 2 MG/ML SDV IVPUSH ONE (11:08)
[2020-03-24] MEDS: Nitroglycerin 0.4 MG Tab.SL SL PRN ×3 (11:15→11:41)
[2020-03-24] MEDS ORDERED: Furosemide 40 MG/4 ML VIAL IVPUSH ONE (11:19)
[2020-03-24 11:20] LABS: BLOOD UREA NITROGEN,BUN 54 mg/dL (7.0-18.0); CARBON DIOXIDE,CO2 22.3 mmol/L (21.0-32.0); CHLORIDE,CL 100 mmol/L (98-107); GLUCOSE RANDOM 156 mg/dL (74-106); POTASSIUM,K 4.4 mmol/L (3.5-5.1); SODIUM,NA 135 mmol/L (136-148)
--- NOTE | 2020-03-24 12:12 | CR ---
Chest: Portable view of the chest was obtained. Comparison: Prior chest x-ray of 06/02/19. Heart is enlarged. Previous sternotomy is noted. Slight atelectasis within the left base and right midlung. Pulmonary vessels are increased raising the possibility of CHF. Bony structures are grossly intact. Impression: 1. Findings suspicious for mild CHF. 2. Slight areas of atelectasis. Diagnostic code #3 This report was dictated in MDT
[2020-03-24] MEDS ORDERED: Nitroglycerin/D5W 25 MG/250 ML BOTTLE IV SCH (13:30)
[2020-03-24 15:22] VITALS: BP 161/77; PULSE 69
== END 2020-03-24 16:50 | disposition other institution (70) ==
LOC: MW.ED 10:35
DX: I21.4 Non-ST elevation (NSTEMI) myocardial infarction (principal); I13.0 Hypertensive heart and chronic kidney disease with heart failure and stage 1 through stage 4 chronic kidney disease, or unspecified chronic kidney disease; E11.22 Type 2 diabetes mellitus with diabetic chronic kidney disease; N18.9 Chronic kidney disease, unspecified; I50.9 Heart failure, unspecified; N17.9 Acute kidney failure, unspecified; I25.10 Atherosclerotic heart disease of native coronary artery without angina pectoris; E78.5 Hyperlipidemia, unspecified; M19.90 Unspecified osteoarthritis, unspecified site; Z95.1 Presence of aortocoronary bypass graft; Z79.82 Long term (current) use of aspirin; Z79.02 Long term (current) use of antithrombotics/antiplatelets; Z79.899 Other long term (current) drug therapy; Z20.828 Contact with and (suspected) exposure to other viral communicable diseases
CPT/HCPCS: 36415; 36600; 71045; 80053; 82803; 83735; 83880; 84100; 84484; 85025; 85730; 93005; 94660; 96365; 96366; 96375; 99291; 99292; A9270; J1644; J1940; J2270; U0002; 93010

== ENCOUNTER 2020-05-03 08:37 | Emergency (ER) | payer MEDICARE, BC, OTHER ==
[2020-05-03] MEDS ORDERED: Sodium Chloride 0.9% 2.5 ML Syringe FLUSH PRN (08:49)
[2020-05-03] MEDS ORDERED: Sodium Chloride 0.9% 10 ML Syringe FLUSH PRN (08:49)
--- NOTE | 2020-05-03 08:54 | EDM.PDOC ---
ED HPI GENERAL MEDICAL PROBLEM - General Chief Complaint: Respiratory Problem Stated Complaint: SWOLLEN FEET AND LEGS Time Seen by Provider: 05/03/20 08:41 Source of Information: Reports: Patient History Limitations: Reports: No Limitations - History of Present Illness INITIAL COMMENTS - FREE TEXT/NARRATIVE: History of present illness: [Patient is 74-year-old male with significant past medical history including CAD, VT, cardiac stents, CABG, who presents with lower extremity edema and shortness of breath. Patient states that recently he had an angioplasty performed and the dye that was used caused him to go into kidney failure. He was requiring dialysis for several weeks but about 2 weeks ago was told he no longer needed it. He is still producing urine. He states that over the last 2 days he has noticed increased swelling in his lower extremities. He states that he has been taking his Lasix, 60 mg, as prescribed and has not missed any doses. His PCP put him on 2 L of oxygen at home a couple days ago because of his shortness of breath. States that he is chronically short of breath but it has been slightly worse than usual over the last couple of days. Denies chest pain. Denies fever. Denies productive cough. Denies abdominal pain, vomiting, diarrhea.] Review of systems: As per history of present illness and below otherwise all systems reviewed and negative. Past medical history: As per history of present illness and as reviewed below otherwise noncontributory. Surgical history: As per history of present illness and as reviewed below otherwise noncontributory. Social history: No reported history of drug or alcohol abuse. Family history: As per history of present illness and as reviewed below otherwise noncontributory. Physical exam: General: Awake, alert, no acute distress, A&O X3. HEENT: Atraumatic, normocephalic, pupils reactive, negative for conjunctival pallor or scleral icterus, mucous membranes moist, throat clear, neck supple, nontender, trachea midline. Lungs: Clear to auscultation, breath sounds equal bilaterally, chest nontender. Heart: RRR, normal S1S2, no JVD. Abdomen: Soft, nondistended, nontender. Negative for masses or hepatosplenomegaly. Pelvis: Stable nontender. Genitourinary: Deferred. Rectal: Deferred. Extremities: 2+ pitting edema of bilateral lower extremities about 2[address]. NV intact Neuro: Motor and sensory grossly intact throughout. Exam nonfocal. Diagnostics: [] Therapeutics: [] Impression: [] Plan: [] Definitive disposition and diagnosis as appropriate pending reevaluation and review of above. - Related Data Allergies Allergy/AdvReac Type Severity Reaction Status Date / Time No Known Allergies Allergy Verified 05/03/20 08:49 Home Meds: Home Meds Aspirin 1 tab PO QAM 02/15/15 [History] Clopidogrel [Plavix] 75 mg PO QAM 02/15/15 [History] Nitroglycerin [Nitrostat] 0.4 mg SL ASDIRECTED PRN 02/15/15 [History] atorvaSTATin [Lipitor] 40 mg PO QAM 02/15/15 [History] hydrALAZINE [Apresoline] 50 mg PO TID 02/15/15 [History] Acetaminophen [Tylenol] 1 - 2 tab PO Q6H PRN 03/22/18 [History] glipiZIDE [Glucotrol] 15 mg PO BID 08/16/18 [History] Iron Polysaccharides Complex [Ferrex 150] 150 mg PO QAM 05/03/20 [History] Isosorbide Mononitrate [Imdur] 30 mg PO DAILY 05/03/20 [History] Liraglutide [Victoza] 1.2 mg IM QAM 05/03/20 [History] Sevelamer HCl [Renagel] 800 mg PO TID 05/03/20 [History] Torsemide 70 mg PO BID 05/03/20 [History] Past Medical History HEENT History: Reports: Other (See Below) Other HEENT History: wears glasses, has bottom partial Cardiovascular History: Reports: CAD, Heart Failure, High Cholesterol, Hypertension, VT Respiratory History: Reports: None Gastrointestinal History: Reports: Chronic Constipation Genitourinary History: Reports: Renal Disease Other Genitourinary History: renal dialysis for 6 weeks 3 yrs ago Musculoskeletal History: Reports: Arthritis, Other (See Below) Other Musculoskeletal History: left knee injury 1998 Neurological History: Reports: None Psychiatric History: Reports: None Endocrine/Metabolic History: Reports: Diabetes, Type II Hematologic History: Reports: Anemia Immunologic History: Reports: None Oncologic (Cancer) History: Reports: None Dermatologic History: Reports: None - Infectious Disease History Infectious Disease History: Reports: Chicken Pox - Past Surgical History Head Surgeries/Procedures: Reports: None HEENT Surgical History: Reports: None Cardiovascular Surgical History: Reports: Coronary Artery Bypass, Coronary Artery Stent Respiratory Surgical History: Reports: None GI Surgical History: Reports: None Male Surgical History: Reports: None Endocrine Surgical History: Reports: None Neurological Surgical History: Reports: None Musculoskeletal Surgical History: Reports: Arthroscopic Knee Other Musculoskeletal Surgeries/Procedures:: left knee arthroscopy Oncologic Surgical History: Reports: None Dermatological Surgical History: Reports: None Social & Family History - Family History Family Medical History: Noncontributory - Caffeine Use Caffeine Use: Reports: Coffee ED ROS GENERAL - Review of Systems Review Of Systems: Comprehensive ROS is negative, except as noted in HPI. ED EXAM, GENERAL - Physical Exam Exam: See Below (see h and p) #1 Interpretation EKG Date: 05/03/20 Time: 09:04 Rhythm: NSR Rate (Beats/Min): 90 [place]: Normal P-Wave: Present QRS: Other (moderate IV conduction delay) ST-T: Depressed (diffusely) QT: Normal Comparison: No Change (compared to EKG on 03-24-20) Course - Vital Signs Text/Narrative:: I spoke with Dr. Smith (nephrology in [place]), the initial plan was for the patient to have his Lasix dose increased and be scheduled for dialysis on Tuesday. However after my phone call we were able to establish an appointment for the patient today at dialysis. He received a dose of 80 mg of IV Lasix here in the ED. His work-up shows a mildly elevated troponin, he has no active chest pain. His BNP is 2500, he is not in respiratory distress. I believe his best course of action is to head over and get dialyzed today and to follow-up next week with PCP to determine if repeat appointments of dialysis are necessary next week. Following dialysis I encouraged him to continue his previous medication regimen with his Lasix and other medications. He was discharged from here with the plan to head over to dialysis straight from the emergency department. He is comfortable this plan and nontoxic and stable at the time of discharge. Last Recorded V/S: Last Vital Signs Temp 35.4 C L 05/03/20 08:43 Pulse 89 05/03/20 09:30 Resp 20 05/03/20 09:30 BP 139/67 05/03/20 09:30 Pulse Ox 97 05/03/20 09:30 - Orders/Labs/Meds Orders: Active Orders 24 hr Category Date Time Status EKG Documentation Completion [RC] STAT Care 05/03/20 08:50 Active Sodium Chloride 0.9% [Saline Flush] Med 05/03/20 08:49 Active 10 ml FLUSH ASDIRECTED PRN Sodium Chloride 0.9% [Saline Flush] Med 05/03/20 08:49 Active 2.5 ml FLUSH ASDIRECTED PRN Saline Lock Insert [OM.PC] Stat Oth 05/03/20 08:49 Ordered Medication Orders Sodium Chloride (Saline Flush) 10 ml FLUSH ASDIRECTED PRN PRN Reason: Keep Vein Open Sodium Chloride (Saline Flush) 2.5 ml FLUSH ASDIRECTED PRN PRN Reason: Keep Vein Open Labs: Laboratory Tests 05/03/20 05/03/20 05/03/20 Range/Units 08:47 08:47 08:47 WBC 8.12 (4.0-11.0) K/uL RBC 3.39 L (4.50-5.90) M/uL Hgb 9.9 L (13.0-17.0) g/dL Hct 32.9 L (38.0-50.0) % MCV 97.1 (80.0-98.0) fL MCH 29.2 (27.0-32.0) pg MCHC 30.1 L (31.0-37.0) g/dL RDW Std Deviation 56.5 (28.0-62.0) fl RDW Coeff of [place] 16 H (11.0-15.0) % Plt Count 333 (150-400) K/uL MPV 8.80 (7.40-12.00) fL Neut % (Auto) 77.4 (48.0-80.0) % Lymph % (Auto) 12.8 L (16.0-40.0) % [place] % (Auto) 6.9 (0.0-15.0) % Eos % (Auto) 2.5 (0.0-7.0) % Baso % (Auto) 0.4 (0.0-1.5) % Neut # (Auto) 6.3 H (1.4-5.7) K/uL Lymph # (Auto) 1.0 (0.6-2.4) K/uL [place] # (Auto) 0.6 (0.0-0.8) K/uL Eos # (Auto) 0.2 (0.0-0.7) K/uL Baso # (Auto) 0.0 (0.0-0.1) K/uL Nucleated RBC % 0.0 /100WBC Nucleated RBCs # 0 K/uL INR 1.13 APTT 27.0 (18.6-31.3) SEC Sodium 139 (136-148) mmol/L Potassium 4.9 (3.5-5.1) mmol/L Chloride 100 (98-107) mmol/L Carbon Dioxide 34.2 H (21.0-32.0) mmol/L BUN 52 H (7.0-18.0) mg/dL Creatinine 2.4 H (0.8-1.3) mg/dL Est Cr Clr Drug Dosing 25.63 mL/min Estimated GFR (MDRD) 26.7 ml/min Glucose 180 H (74-106) mg/dL Calcium 8.9 (8.5-10.1) mg/dL Total Bilirubin 0.9 (0.2-1.0) mg/dL AST 24 (15-37) IU/L ALT 33 (14-63) IU/L Alkaline Phosphatase 185 H (46-116) U/L Troponin I 0.069 H* (0.000-0.056) ng/mL B-Natriuretic Peptide (<100) PG/ML Total Protein 7.7 (6.4-8.2) g/dL Albumin 3.4 (3.4-5.0) g/dL Globulin 4.3 H (2.6-4.0) g/dL Albumin/Globulin Ratio 0.8 L (0.9-1.6) 05/03/20 Range/Units 08:47 WBC (4.0-11.0) K/uL RBC (4.50-5.90) M/uL Hgb (13.0-17.0) g/dL Hct (38.0-50.0) % MCV (80.0-98.0) fL MCH (27.0-32.0) pg MCHC (31.0-37.0) g/dL RDW Std Deviation (28.0-62.0) fl RDW Coeff of [place] (11.0-15.0) % Plt Count (150-400) K/uL MPV (7.40-12.00) fL Neut % (Auto) (48.0-80.0) % Lymph % (Auto) (16.0-40.0) % [place] % (Auto) (0.0-15.0) % Eos % (Auto) (0.0-7.0) % Baso % (Auto) (0.0-1.5) % Neut # (Auto) (1.4-5.7) K/uL Lymph # (Auto) (0.6-2.4) K/uL [place] # (Auto) (0.0-0.8) K/uL Eos # (Auto) (0.0-0.7) K/uL Baso # (Auto) (0.0-0.1) K/uL Nucleated RBC % /100WBC Nucleated RBCs # K/uL INR APTT (18.6-31.3) SEC Sodium (136-148) mmol/L Potassium (3.5-5.1) mmol/L Chloride (98-107) mmol/L Carbon Dioxide (21.0-32.0) mmol/L BUN (7.0-18.0) mg/dL Creatinine (0.8-1.3) mg/dL Est Cr Clr Drug Dosing mL/min Estimated GFR (MDRD) ml/min Glucose (74-106) mg/dL Calcium (8.5-10.1) mg/dL Total Bilirubin (0.2-1.0) mg/dL AST (15-37) IU/L ALT (14-63) IU/L Alkaline Phosphatase (46-116) U/L Troponin I (0.000-0.056) ng/mL B-Natriuretic Peptide 2515 H (<100) PG/ML Total Protein (6.4-8.2) g/dL Albumin (3.4-5.0) g/dL Globulin (2.6-4.0) g/dL Albumin/Globulin Ratio (0.9-1.6) Meds: Medications Generic Name Dose Route Start Last Admin Trade Name Freq PRN Reason Stop Dose Admin Sodium Chloride 10 ml 05/03/20 08:49 Saline Flush FLUSH ASDIRECTED PRN Keep Vein Open Sodium Chloride 2.5 ml 05/03/20 08:49 Saline Flush FLUSH ASDIRECTED PRN Keep Vein Open Discontinued Medications Generic Name Dose Route Start Last Admin Trade Name Felecia PRN Reason Stop Dose Admin Furosemide 80 mg 05/03/20 09:48 05/03/20 09:59 Lasix IVPUSH 05/03/20 09:49 80 mg NOW ONE Administration Departure - Departure Time of Disposition: 10:37 Disposition: DC/Tfer to Other 70 Condition: Good Clinical Impression: Edema due to congestive heart failure - Discharge Information Instructions: Heart Failure Exacerbation Referrals: Yenni Waggoner MD [Primary Care Provider] - Forms: ED Department Discharge Additional Instructions: Head over to dialysis center for dialysis straight from the emergency department. Follow-up with primary care doctor. Take all medications as previously prescribed. Return to the ER with any new or worsening symptoms. The following information is given to patients seen in the emergency department who are being discharged to home. This information is to outline your options for follow-up care. We provide all patients seen in our emergency department with a follow-up referral. The need for follow-up, as well as the timing and circumstances, are variable depending upon the specifics of your emergency department visit. If you don't have a primary care physician on staff, we will provide you with a referral. We always advise you to contact your personal physician following an emergency department visit to inform them of the circumstance of the visit and for follow-up with them and/or the need for any referrals to a consulting specialist. The emergency department will also refer you to a specialist when appropriate. This referral assures that you have the opportunity for follow-up care with a specialist. All of these measure are taken in an effort to provide you with optimal care, which includes your follow-up. Under all circumstances we always encourage you to contact your private physician who remains a resource for coordinating your care. When calling for follow-up care, please make the office aware that this follow-up is from your recent emergency room visit. If for any reason you are refused follow-up, please contact the [facility] Emergency Department at and asked to speak to the emergency department charge nurse. Sepsis Event Note (ED) - Evaluation Sepsis Screening Result: No Definite Risk - Focused Exam Vital Signs: Vital Signs Temp Pulse Resp BP Pulse Ox 05/03/20 09:30 89 20 139/67 97 05/03/20 09:00 92 20 133/75 100 05/03/20 08:43 35.4 C L 103 H 22 H 139/77 96 - My Orders Last 24 Hours: My Active Orders 05/03/20 08:49 Sodium Chloride 0.9% [Saline Flush] 10 ml FLUSH ASDIRECTED PRN Sodium Chloride 0.9% [Saline Flush] 2.5 ml FLUSH ASDIRECTED PRN Saline Lock Insert [OM.PC] Stat 05/03/20 08:50 EKG Documentation Completion [RC] STAT - Assessment/Plan Last 24 Hours: My Active Orders 05/03/20 08:49 Sodium Chloride 0.9% [Saline Flush] 10 ml FLUSH ASDIRECTED PRN Sodium Chloride 0.9% [Saline Flush] 2.5 ml FLUSH ASDIRECTED PRN Saline Lock Insert [OM.PC] Stat 05/03/20 08:50 EKG Documentation Completion [RC] STAT
--- NOTE | 2020-05-03 09:13 | CR ---
HISTORY: Dyspnea. COMPARISON: 03/24/2020. TECHNIQUE: Chest one-view portable upright. FINDINGS: Postoperative changes of a median sternotomy. There is a right IJ hemodialysis catheter. Tip is in the SVC. Asymmetric interstitial type opacities, which have progressed when compared with 03/24/2020. Linear atelectasis or scar adjacent to the left heart border. Small left pleural effusion versus pleural thickening. No pneumothorax. IMPRESSION: 1. Asymmetric interstitial type opacities, with interval progression. 2. Pulmonary edema is favored. Viral pneumonia can produce a similar radiographic appearance. Dictated by Arnoldo Ayers MD @ May 03 2020 9:10AM Signed by Dr. Arnoldo Ayers @ May 03 2020 9:11AM
[2020-05-03 09:20] LABS: CARBON DIOXIDE,CO2 34.2 mmol/L (21.0-32.0); POTASSIUM,K 4.9 mmol/L (3.5-5.1)
[2020-05-03 09:33] VITALS: BP 139/67; PULSE 89
[2020-05-03] MEDS ORDERED: Furosemide 40 MG/4 ML VIAL IVPUSH ONE (09:48)
== END 2020-05-03 10:53 | disposition other institution (70) ==
LOC: MW.ED 08:37
DX: I11.0 Hypertensive heart disease with heart failure (principal); I50.9 Heart failure, unspecified; I25.10 Atherosclerotic heart disease of native coronary artery without angina pectoris; E78.00 Pure hypercholesterolemia, unspecified; I25.2 Old myocardial infarction; E11.9 Type 2 diabetes mellitus without complications; Z79.82 Long term (current) use of aspirin; Z79.02 Long term (current) use of antithrombotics/antiplatelets; Z79.84 Long term (current) use of oral hypoglycemic drugs; Z95.5 Presence of coronary angioplasty implant and graft; Z95.1 Presence of aortocoronary bypass graft
CPT/HCPCS: 36415; 71045; 80053; 83880; 84484; 85025; 85610; 85730; 93005; 96374; 99285; J1940; 93010; 99284

== ENCOUNTER 2020-09-22 13:42 | Emergency (ER) | payer MEDICARE, BC, OTHER ==
[2020-09-22] MEDS ORDERED: fentaNYL 100 MCG/2 ML SDV IVPUSH ONE ×2 (13:49→14:04)
[2020-09-22] MEDS ORDERED: fentaNYL 50 MCG/ML SDV IVPUSH ONE ×2 (13:49→14:04)
[2020-09-22] MEDS ORDERED: Sodium Chloride 0.9% 2.5 ML Syringe FLUSH PRN (14:00)
[2020-09-22] MEDS ORDERED: Sodium Chloride 0.9% 1,000 ML IV ONE (14:00)
[2020-09-22] MEDS ORDERED: fentaNYL 1,000 MCG in Sodium Chloride 0.9% 80 ML IV SCH (14:00)
[2020-09-22] MEDS ORDERED: Sodium Chloride 0.9% 10 ML Syringe FLUSH PRN (14:00)
[2020-09-22] MEDS ORDERED: fentaNYL 100 MCG/2 ML SDV ONE (14:03)
[2020-09-22 14:26] LABS: CARBON DIOXIDE,CO2 37.7 mmol/L (21.0-32.0)
--- NOTE | 2020-09-22 14:37 | CR ---
Indication: Tube placement Comparison: Single-view chest September 23, 1999 21 Technique: Single AP view chest Findings: There is satisfactory position of endotracheal tube within the mid trachea. There is again seen right greater than left basilar pleural effusions with extensive interstitial and airspace opacities likely representing multifocal pulmonary edema and/or infiltrates. Stable cardiac silhouette prominence with median sternotomy wires. The bony thorax is grossly intact. Impression: Satisfactory position of endotracheal tube with persistent basilar pleural effusions with extensive interstitial and airspace opacities likely representing multifocal infiltrates and/or edema. Dictated by Ventura Hernandez MD @ Sep 22 2020 2:35PM Signed by Dr. Ventura Hernandez @ Sep 22 2020 2:36PM
--- NOTE | 2020-09-22 14:41 | CR ---
Indication: Check tube placement Comparison: Single-view chest May 03, 2021 Technique: Single AP view chest Findings: There is partial visualization of a likely tube within the trachea seen at the level of the aortic knob. There are bibasilar pleural effusions with adjacent compressive atelectasis versus infiltrates. Cardiac silhouette enlargement with median sternotomy wires. The bony thorax is grossly intact. Impression: Demonstration of a endotracheal tube at the level of the aortic knob approximately 2.7 centimeters from the jessica. Dictated by Ventura Hernandez MD @ Sep 22 2020 2:37PM Signed by Dr. Ventura Hernandez @ Sep 22 2020 2:39PM
[2020-09-22] MEDS ORDERED: Furosemide 40 MG/4 ML VIAL IVPUSH ONE (14:48)
[2020-09-22 15:12] VITALS: BP 135/73; PULSE 58
[2020-09-22] MEDS ORDERED: propofoL 100 ML ONE (15:51)
[2020-09-22] MEDS ORDERED: propofoL 100 ML IV SCH (16:00)
--- NOTE | 2020-09-22 16:08 | EDM.PDOC ---
ED HPI GENERAL MEDICAL PROBLEM - General Chief Complaint: Respiratory Problem Stated Complaint: TRAUMA CODE Time Seen by Provider: 09/22/20 13:42 - History of Present Illness INITIAL COMMENTS - FREE TEXT/NARRATIVE: CHIEF COMPLAINT(S): Hypoxia HISTORY OF PRESENT ILLNESS: This is a 75-year-old man with a past medical history of CHF with reduced ejection fraction, diabetes mellitus, CKD who presents to the emergency department as a medical resuscitation via EMS with a chief complaint of hypoxia. History was obtained from EMS at bedside as patient is intubated and sedated and paralyzed. Per EMS: They were contacted by the [facility] as the patient was altered and breathing heavily. Upon their arrival the patient was hypoxic on room air and altered therefore they did intubate the patient using ketamine and rocuronium. The intubated with a 6.5 endotracheal tube and secured at 24 cm at the lip. They stated that after intubation the patient did have some bradycardia for which they provided atropine. They stated that prior to intubation the patient was hypotensive however after intubation the patient remained normotensive and his pulse oximetry came up to 100%. REVIEW OF SYSTEMS: Unable to obtain secondary to patient clinical condition PAST MEDICAL HISTORY: As per history of present illness and as reviewed below otherwise noncontributory. SURGICAL HISTORY: As per history of present illness and as reviewed below otherwise noncontributory. SOCIAL HISTORY: As per history of present illness and as reviewed below otherwise noncontributory. FAMILY HISTORY: As per history of present illness and as reviewed below otherwise noncontributory. EXAMINATION OF ORGAN SYSTEMS/BODY AREAS: VITALS: Blood pressure was 156/82, heart rate 69, respiratory rate 20 with an oxygen saturation of 99% via [id number]. Rectal temperature was 35.1.. GENERAL: Intubated gentleman who is in no acute distress. HEAD: Normocephalic, atraumatic. EYES: Pupils were 2 mm bilaterally and reactive ENT. External ears WNL. Nares patent. Endotracheal tube is in place with fogging at 24 cm at the teeth. NECK: Supple, no masses. Trachea is midline. LUNGS: Bilateral breath sounds auscultated which were rhonchorous bilaterally with bag valve mask administration. CARDIOVASCULAR: Regular rate and rhythm with S1-S2. No murmur, rubs or gallops. 2+ pitting edema of the lower extremities. No JVD. ABDOMEN: Soft, non-distended, non-tender. Bowel sounds present in all 4 quadrants. MUSCULOSKELETAL: No deformity. NEUROLOGICAL: Neurological examination is limited secondary to paralytic administration however at the time of my reevaluation patient did have reactive pupils was intermittently moving his extremities. SKIN: No rashes, or pallor. No signs of injury. MEDICAL DECISION MAKING AND COURSE IN THE ED WITH INTERPRETATION/REVIEW OF DIAGNOSTIC STUDIES: This is a 75-year-old man with a past medical history of CHF with reduced ejection fraction who presents to the emergency department with reported altered mentation and hypoxia who is now intubated, sedated and partially paralyzed. Immediately upon entering the resuscitation room the patient was disrobed, placed on continuous cardiac monitoring, and IV access was established by nursing. Patient was not able to speak due to endotracheal tube in place, patient did have breath sounds bilaterally via [id number] administration, and the patient did have palpable peripheral pulses. At this time we did obtain a chest x-ray to evaluate for proper endotracheal tube placement and a NG tube was placed. Chest x-ray did reveal proper endotracheal tube placement and NG tube placement. Did obtain an EKG which did not reveal any acute signs of ischemia or change from prior. At this time given the patient's history of CHF I do believe that the patient is likely experiencing a heart failure exacerbation that resulted in hypoxia and his altered mentation. We will obtain a cardiac work-up. We will provide the patient with aspirin rectally. We also provided the patient with 100 mcg of fentanyl and started a fentanyl drip for sedation. The patient was becoming less sedated therefore we did provide the patient with additional 100 mcg of fentanyl. This fentanyl did infiltrate the left antecubital fossa. Therefore we administered an additional dose of 100 mcg of fentanyl and increased the fentanyl drip. We did also provide the patient with 40 mg of IV Lasix and placed a Escobar catheter for monitoring urinary output Time: 1406 Twelve-lead EKG interpreted by myself. Normal sinus rhythm at a rate of 68 beats per minute. Normal axis. NE interval is 218 ms. QRS duration is [address] segment appears depressed in leads I, aVL, V3 to V6 with mild ST elevation in aVR. These elevations and depressions are unchanged from May 03, 2020. The re are also T wave inversions in leads I, aVL, V3 through V6. QTC is mildly prolonged at 508. There is is unchanged from prior EKG dated 05/03/2020. Interpretation: Sinus rhythm with anterolateral T wave inversions. Laboratory: CBC is unremarkable except for a decreased platelet count at 147. CMP reveals hypochloremia at 97, metabolic alkalosis with a bicarbonate of 37.7, acute kidney injury with a BUN of 102 and creatinine of 2.9, AST elevation at 83, elevation in alkaline phosphatase at 240. Troponin is positive at 0.132. BNP is elevated at 795. There is hypoalbuminemia at 2.9. Covid is negative. The radiological images were viewed by myself along with reading the report from the radiologist. Chest x-ray reveals satisfactory position of endotracheal tube with persistent basilar pleural effusions with extensive interstitial and airspace opacities likely representing multifocal infiltrates and/or edema. Chest x-ray initially revealed demonstration of endotracheal tube at the level of the aortic knob approximately 2 cm from the jessica. Patient continued to remain stable. The patient's was at bedside. I did discuss that I would like to transfer her at this time. She was amenable to this plan. 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 Given that the patient has a extrusion die repair manager and a scheduled pacemaker placement in September I do believe this is the appropriate plan. I contacted [facility] in [place] and spoke with Dr. Frnaz who accepted the admission. The patient will be transferred via fixed wing. DISPOSITION: Transfer CONDITION: Serious PROCEDURES: Cardiac monitoring interpretation, pulse oximetry interpretation FINAL IMPRESSION(S)/DIAGNOSES: 1. Acute hypoxic respiratory failure requiring mechanical ventilation likely secondary to acute CHF exacerbation 2. Acute CHF exacerbation 3. Acute elevated troponin likely demand ischemia secondary to #1 and #2 Critical Care Procedure Note Authorized and performed by: Janes Cartagena M.D. Critical Care Time: 61 minutes Due to a high probability of clinically significant, life threatening deterioration, the patient required my highest level of preparedness to intervene emergently and I personally spent this critical care time directly and personally managing the patient. This critical care time included obtaining a history, examining the patient, pulse oximetry; ordering and review of studies; arranging urgent treatment with development of a management plan; evaluation of a patients reponse to treatment; frequent assessment; and discussions with other providers. This critical care time was performed to assess and manage the high probability of imminent, life threatening deterioration that could result in multiorgan failure. It was exclusive of separate billable procedures and treating other patients. Please see MDM section and rest of the note for further information on patient assessment and treatment. Please see MDM section and rest of the note for further information on patient assessment and treatment. - Related Data Allergies Allergy/AdvReac Type Severity Reaction Status Date / Time No Known Allergies Allergy Verified 09/22/20 14:08 Home Meds: Home Meds Aspirin 1 tab PO QAM 02/15/15 [History] Clopidogrel [Plavix] 75 mg PO QAM 02/15/15 [History] Nitroglycerin [Nitrostat] 0.4 mg SL .EVERY 5 MINUTES PRN 02/15/15 [History] atorvaSTATin [Lipitor] 80 mg PO QAM 02/15/15 [History] hydrALAZINE [Apresoline] 50 mg PO TID 02/15/15 [History] Acetaminophen [Tylenol] 1 - 2 tab PO Q6H PRN 03/22/18 [History] glipiZIDE [Glucotrol] 10 mg PO BID 08/16/18 [History] Iron Polysaccharides Complex [Ferrex 150] 150 mg PO QAM 05/03/20 [History] Isosorbide Mononitrate [Imdur] 30 mg PO DAILY 05/03/20 [History] Liraglutide [Victoza] 1.8 mg IM QAM 05/03/20 [History] Sevelamer HCl [Renagel] 800 mg PO TID 05/03/20 [History] Torsemide 60 mg PO BID 05/03/20 [History] carvediloL [Carvedilol] 6.25 mg PO BID 09/22/20 [History] metOLazone [Metolazone] 2.5 mg PO MOWEFR 09/22/20 [History] Past Medical History HEENT History: Reports: Other (See Below) Other HEENT History: wears glasses, has bottom partial Cardiovascular History: Reports: CAD, Heart Failure, High Cholesterol, Hypertension, [place] Respiratory History: Reports: Other (See Below) Other Respiratory History: on 02 at 2liters/min since 2 days ago Gastrointestinal History: Reports: Chronic Constipation Genitourinary History: Reports: Renal Disease Other Genitourinary History: renal dialysis for 6 weeks 3 yrs ago Musculoskeletal History: Reports: Arthritis, Other (See Below) Other Musculoskeletal History: left knee injury 1997 Neurological History: Reports: None Psychiatric History: Reports: None Endocrine/Metabolic History: Reports: Diabetes, Type II Hematologic History: Reports: Anemia Immunologic History: Reports: None Oncologic (Cancer) History: Reports: None Dermatologic History: Reports: None - Infectious Disease History Infectious Disease History: Reports: Chicken Pox - Past Surgical History Head Surgeries/Procedures: Reports: None HEENT Surgical History: Reports: None Cardiovascular Surgical History: Reports: Coronary Artery Bypass, Coronary Artery Stent Respiratory Surgical History: Reports: None GI Surgical History: Reports: None Male Surgical History: Reports: None, Other (See Below) Other Male Surgeries/Procedures: vein mapping to left arm Endocrine Surgical History: Reports: None Neurological Surgical History: Reports: None Musculoskeletal Surgical History: Reports: Arthroscopic Knee Other Musculoskeletal Surgeries/Procedures:: left knee arthroscopy Oncologic Surgical History: Reports: None Dermatological Surgical History: Reports: None Social & Family History - Family History Family Medical History: No Pertinent Family History - Caffeine Use Caffeine Use: Reports: None - Recreational Drug Use Recreational Drug Use: No ED ROS GENERAL - Review of Systems Review Of Systems: See Below ED EXAM, GENERAL - Physical Exam Exam: See Below Course - Vital Signs Last Recorded V/S: Last Vital Signs Temp 35.1 C L 09/22/20 13:42 Pulse 58 L 09/22/20 15:12 Resp 12 09/22/20 15:12 BP 135/73 09/22/20 15:12 Pulse Ox 100 09/22/20 15:12 - Orders/Labs/Meds Orders: Active Orders 24 hr Category Date Time Status Cardiac Monitoring [RC] . DIRECTED Care 09/22/20 14:00 Active EKG Documentation Completion [RC] STAT Care 09/22/20 14:00 Active Insert Urinary Catheter [OM.PC] Q24H Care 09/22/20 14:00 Ordered RASS Sedation Scale [RC] ASDIRECTED Care 09/22/20 15:52 Active Urinary Catheter Assessment [RC] ASDIRECTED Care 09/22/20 14:00 Active Ventilator Assessment, ED [RT Ventilator ED, Adult] [RC Care 09/22/20 15:19 Active ] ASDIRECTED Aspirin Med 09/22/20 21:00 Active 300 mg RECTAL BEDTIME Sodium Chloride 0.9% [Saline Flush] Med 09/22/20 14:00 Active 10 ml FLUSH ASDIRECTED PRN Sodium Chloride 0.9% [Saline Flush] Med 09/22/20 14:00 Active 2.5 ml FLUSH ASDIRECTED PRN fentaNYL [Sublimaze] 1,000 mcg Med 09/22/20 14:00 Active Sodium Chloride 0.9% [Normal Saline] 80 ml IV TITRATE propofoL [Diprivan 100 ML] 100 ml Med 09/22/20 16:00 Active IV TITRATE Desired Level of Sedation (RASS) [AST] Click to Edit Ot 09/22/20 15:52 Ordered Saline Lock Insert [OM.PC] Stat Ot 09/22/20 14:00 Ordered Medication Orders Aspirin (Aspirin 300 Mg Supp) 300 mg RECTAL BEDTIME OBDULIA Last Admin: 09/22/20 15:09 Dose: 300 mg Documented by: BRI Fentanyl 1,000 mcg/ Sodium (Chloride) 100 mls @ 10 mls/hr IV TITRATE [facility] Last Infusion: 09/22/20 14:26 Dose: 17.8 mls/hr Documented by: Admin: 09/22/20 14:20 Dose: 8.9 mls/hr Documented by: BRI Propofol (Diprivan 100 Ml) 100 mls @ 2.67 mls/hr IV TITRATE OBDULIA; Protocol Last Admin: 09/22/20 15:54 Dose: 5 mcg/kg/min, 2.67 mls/hr Documented by: BRI Sodium Chloride (Sodium Chloride 0.9% 10 Ml Syringe) 10 ml FLUSH ASDIRECTED PRN PRN Reason: Keep Vein Open Last Admin: 09/22/20 14:19 Dose: 10 ml Documented by: BRI Sodium Chloride (Sodium Chloride 0.9% 2.5 Ml Syringe) 2.5 ml FLUSH ASDIRECTED PRN PRN Reason: Keep Vein Open Last Admin: 09/22/20 14:19 Dose: 2.5 ml Documented by: BRI Labs: Laboratory Tests 09/22/20 09/22/20 09/22/20 Range/Units 13:48 13:48 13:48 WBC 5.11 (4.0-11.0) K/uL RBC 4.07 L (4.50-5.90) M/uL Hgb 11.7 L (13.0-17.0) g/dL Hct 39.1 (38.0-50.0) % MCV 96.1 (80.0-98.0) fL MCH 28.7 (27.0-32.0) pg MCHC 29.9 L (31.0-37.0) g/dL RDW Std Deviation 56.9 (28.0-62.0) fl RDW Coeff of Marianna 16 H (11.0-15.0) % Plt Count 147 L (150-400) K/uL MPV 10.70 (7.40-12.00) fL Neut % (Auto) 73.9 (48.0-80.0) % Lymph % (Auto) 14.9 L (16.0-40.0) % Pratt % (Auto) 9.4 (0.0-15.0) % Eos % (Auto) 1.6 (0.0-7.0) % Baso % (Auto) 0.2 (0.0-1.5) % Neut # (Auto) 3.8 (1.4-5.7) K/uL Lymph # (Auto) 0.8 (0.6-2.4) K/uL Pratt # (Auto) 0.5 (0.0-0.8) K/uL Eos # (Auto) 0.1 (0.0-0.7) K/uL Baso # (Auto) 0.0 (0.0-0.1) K/uL Nucleated RBC % 0.0 /100WBC Nucleated RBCs # 0 K/uL ABG pH (7.35-7.45) ABG pCO2 (35-45) mmHG ABG pO2 (75-100) mmHG ABG HCO3 (22-26) mEq/L ABG Total CO2 ABG Base Excess (-2.0-2.0) Sodium 137 (136-148) mmol/L Potassium 5.0 (3.5-5.1) mmol/L Chloride 97 L (98-107) mmol/L Carbon Dioxide 37.7 H (21.0-32.0) mmol/L BUN 102 H (7.0-18.0) mg/dL Creatinine 2.9 H (0.8-1.3) mg/dL Est Cr Clr Drug Dosing 21.62 mL/min Estimated GFR (MDRD) 21.4 ml/min Glucose 119 H (74-106) mg/dL Calcium 8.5 (8.5-10.1) mg/dL Total Bilirubin 0.9 (0.2-1.0) mg/dL AST 83 H (15-37) IU/L ALT 63 (14-63) IU/L Alkaline Phosphatase 240 H (46-116) U/L Troponin I 0.132 H* (0.000-0.056) ng/mL B-Natriuretic Peptide 795 H (<100) PG/ML Total Protein 7.2 (6.4-8.2) g/dL Albumin 2.9 L (3.4-5.0) g/dL Globulin 4.3 H (2.6-4.0) g/dL Albumin/Globulin Ratio 0.7 L (0.9-1.6) SARS-CoV-2 RNA (LAMINE) (NEGATIVE) 09/22/20 09/22/20 Range/Units 14:52 14:55 WBC (4.0-11.0) K/uL RBC (4.50-5.90) M/uL Hgb (13.0-17.0) g/dL Hct (38.0-50.0) % MCV (80.0-98.0) fL MCH (27.0-32.0) pg MCHC (31.0-37.0) g/dL RDW Std Deviation (28.0-62.0) fl RDW Coeff of Marianan (11.0-15.0) % Plt Count (150-400) K/uL MPV (7.40-12.00) fL Neut % (Auto) (48.0-80.0) % Lymph % (Auto) (16.0-40.0) % Pratt % (Auto) (0.0-15.0) % Eos % (Auto) (0.0-7.0) % Baso % (Auto) (0.0-1.5) % Neut # (Auto) (1.4-5.7) K/uL Lymph # (Auto) (0.6-2.4) K/uL Pratt # (Auto) (0.0-0.8) K/uL Eos # (Auto) (0.0-0.7) K/uL Baso # (Auto) (0.0-0.1) K/uL Nucleated RBC % /100WBC Nucleated RBCs # K/uL ABG pH 7.320 L (7.35-7.45) ABG pCO2 82 H (35-45) mmHG ABG pO2 127 H (75-100) mmHG ABG HCO3 42 H (22-26) mEq/L ABG Total CO2 39.6 ABG Base Excess 13.0 H (-2.0-2.0) Sodium (136-148) mmol/L Potassium (3.5-5.1) mmol/L Chloride (98-107) mmol/L Carbon Dioxide (21.0-32.0) mmol/L BUN (7.0-18.0) mg/dL Creatinine (0.8-1.3) mg/dL Est Cr Clr Drug Dosing mL/min Estimated GFR (MDRD) ml/min Glucose (74-106) mg/dL Calcium (8.5-10.1) mg/dL Total Bilirubin (0.2-1.0) mg/dL AST (15-37) IU/L ALT (14-63) IU/L Alkaline Phosphatase (46-116) U/L Troponin I (0.000-0.056) ng/mL B-Natriuretic Peptide (<100) PG/ML Total Protein (6.4-8.2) g/dL Albumin (3.4-5.0) g/dL Globulin (2.6-4.0) g/dL Albumin/Globulin Ratio (0.9-1.6) SARS-CoV-2 RNA (LAMINE) NEGATIVE (NEGATIVE) Meds: Medications Generic Name Dose Route Start Last Admin Trade Name Felecia PRN Reason Stop Dose Admin Aspirin 300 mg 09/22/20 21:00 09/22/20 15:09 Aspirin 300 Mg Supp RECTAL 300 mg BEDTIME OBDULIA Administration Fentanyl 1,000 mcg/ Sodium 100 mls @ 10 mls/hr 09/22/20 14:00 09/22/20 14:26 Chloride IV 17.8 mls/hr TITRATE OBDULIA Infusion Propofol 100 mls @ 2.67 mls/hr 09/22/20 16:00 09/22/20 15:54 Diprivan 100 Ml IV 5 mcg/kg/min TITRATE OBDULIA 2.67 mls/hr Administration Protocol 5 MCG/KG/MIN Sodium Chloride 10 ml 09/22/20 14:00 09/22/20 14:19 Sodium Chloride 0.9% 10 Ml Syringe FLUSH 10 ml ASDIRECTED PRN Administration Keep Vein Open Sodium Chloride 2.5 ml 09/22/20 14:00 09/22/20 14:19 Sodium Chloride 0.9% 2.5 Ml Syringe FLUSH 2.5 ml ASDIRECTED PRN Administration Keep Vein Open Discontinued Medications Generic Name Dose Route Start Last Admin Trade Name Felecia PRN Reason Stop Dose Admin Fentanyl Confirm 09/22/20 14:03 09/22/20 14:16 Fentanyl 100 Mcg/2 Ml Sdv Administered 09/22/20 14:04 Not Given Dose 100 mcg .ROUTE .STK-MED ONE Fentanyl 100 mcg 09/22/20 14:04 09/22/20 14:25 Fentanyl 50 Mcg/Ml Sdv IVPUSH 09/22/20 14:05 Not Given ONETIME ONE Fentanyl 100 mcg 09/22/20 13:49 09/22/20 15:06 Fentanyl 50 Mcg/Ml Sdv IVPUSH 09/22/20 13:50 Not Given ONETIME ONE Fentanyl 100 mcg 09/22/20 13:49 09/22/20 13:49 Fentanyl 100 Mcg/2 Ml Sdv IVPUSH 09/22/20 13:50 100 mcg ONETIME ONE Administration Fentanyl 100 mcg 09/22/20 14:04 09/22/20 14:04 Fentanyl 100 Mcg/2 Ml Sdv IVPUSH 09/22/20 14:05 100 mcg ONETIME ONE Administration Furosemide 40 mg 09/22/20 14:48 09/22/20 14:59 Furosemide 40 Mg/4 Ml Vial IVPUSH 09/22/20 14:49 40 mg NOW ONE Administration Sodium Chloride 1,000 mls @ 999 mls/hr 09/22/20 14:00 09/22/20 14:19 Normal Saline IV 09/22/20 15:00 999 mls/hr STAT ONE Administration Propofol Confirm 09/22/20 15:51 09/22/20 15:54 Diprivan 100 Ml Administered 09/22/20 15:52 Not Given Dose 100 mls @ as directed .ROUTE .STK-MED ONE Departure - Departure Time of Disposition: 16:08 Disposition: DC/Tfer to Acute Hospital 02 Condition: Serious Clinical Impression: Congestive heart failure (CHF) - Discharge Information Referrals: Yenni Waggoner MD [Primary Care Provider] - Forms: ED Department Discharge Sepsis Event Note (ED) - Evaluation Sepsis Screening Result: No Definite Risk - Focused Exam Vital Signs: Vital Signs Temp Pulse Resp BP Pulse Ox 09/22/20 15:12 58 L 12 135/73 100 09/22/20 14:27 65 12 131/66 98 09/22/20 13:42 35.1 C L 69 20 156/82 H 99 - My Orders Last 24 Hours: My Active Orders 09/22/20 14:00 fentaNYL [Sublimaze] 1,000 mcg Sodium Chloride 0.9% [Normal Saline] 80 ml IV TITRATE 09/22/20 15:19 Ventilator Assessment, ED [RT Ventilator ED, Adult] [RC] ASDIRECTED 09/22/20 15:52 RASS Sedation Scale [RC] ASDIRECTED Desired Level of Sedation (RASS) [AST] Click to Edit 09/22/20 16:00 propofoL [Diprivan 100 ML] 100 ml IV TITRATE 09/22/20 21:00 Aspirin 300 mg RECTAL BEDTIME - Assessment/Plan Last 24 Hours: My Active Orders 09/22/20 14:00 fentaNYL [Sublimaze] 1,000 mcg Sodium Chloride 0.9% [Normal Saline] 80 ml IV TITRATE 09/22/20 15:19 Ventilator Assessment, ED [RT Ventilator ED, Adult] [RC] ASDIRECTED 09/22/20 15:52 RASS Sedation Scale [RC] ASDIRECTED Desired Level of Sedation (RASS) [AST] Click to Edit 09/22/20 16:00 propofoL [Diprivan 100 ML] 100 ml IV TITRATE 09/22/20 21:00 Aspirin 300 mg RECTAL BEDTIME
[2020-09-22] MEDS ORDERED: Aspirin 300 MG Supp RECTAL SCH (21:00)
== END 2020-09-22 15:55 ==
LOC: MW.ED 13:42
DX: I13.0 Hypertensive heart and chronic kidney disease with heart failure and stage 1 through stage 4 chronic kidney disease, or unspecified chronic kidney disease (principal); I50.9 Heart failure, unspecified; N18.9 Chronic kidney disease, unspecified; R79.89 Other specified abnormal findings of blood chemistry; J96.01 Acute respiratory failure with hypoxia; E11.22 Type 2 diabetes mellitus with diabetic chronic kidney disease; I25.10 Atherosclerotic heart disease of native coronary artery without angina pectoris; E78.00 Pure hypercholesterolemia, unspecified; I25.2 Old myocardial infarction; M19.90 Unspecified osteoarthritis, unspecified site; Z79.82 Long term (current) use of aspirin; Z79.02 Long term (current) use of antithrombotics/antiplatelets; Z79.899 Other long term (current) drug therapy; Z79.84 Long term (current) use of oral hypoglycemic drugs; Z20.822 Contact with and (suspected) exposure to COVID-19
CPT/HCPCS: 31500; 36415; 36600; 43752; 71045; 80053; 82803; 83880; 84484; 85025; 93005; 94002; 96374; 99285; A9270; J1940; J2704; J3010; J7030; U0002; 93010; 99291